=== PATIENT | male | born 2000 | race Hispanic/Latino ===

== ENCOUNTER 2020-01-25 08:45 | Inpatient (IN) | payer OTHER, SELFPAY ==
[2020-01-25 09:25] LABS: #Basophils 0.1 thou/uL (0.0-0.2); #Eosinphils 0.1 thou/uL (0.0-0.7); #Lymphocytes 1.8 thou/uL (1.20-3.40); #Monocytes 0.8 thou/uL (0.11-0.59); #Neutrophils 5.4 thou/uL (1.40-6.50); %Basophils 1.2 % (0.0-1.0); %Eosinophils 1.3 % (0.0-10.0); %Lymphocytes 22.2 % (28.0-48.0); %Monocytes 9.3 % (0.0-4.0); Hemoglobin 13.8 g/dL (14.0-18.0); Mean Corpuscular HGB CONC 33.6 g/dL (32.0-36.0); Mean Corpuscular Hemoglobin 31.2 pg (25.0-35.0); Mean Corpuscular Volume 92.8 fL (78.0-98.0); Mean Platelet Volume 7.7 fL (7.4-10.4); Platelet Count 187 thou/uL (130-400); RBC Distribution Width 11.6 % (11.5-14.5); Red Blood Cell (RBC) Count 4.41 mill/uL (4.00-5.20); White Blood Cell (WBC) Count 8.2 thou/uL (4.8-10.8)
--- NOTE | 2020-01-25 09:45 | RAD ---
CHEST 1 VIEW: Date: 01/25/2020 HISTORY: Chest pain. COMPARISON: None. FINDINGS: The lungs are clear. No pneumothorax. No effusion. Cardiac silhouette and mediastinal contours are wi thin normal limits. No acute osseous abnormality. IMPRESSION: No acute intrathoracic abnormality. POS: [facility]
[2020-01-25 09:47] LABS: ALT (SGPT) 12 U/L (8-55); AST (SGOT) 13 U/L (5-34); Alkaline Phosphatase 84 U/L (50-130); Anion Gap 20 mmol/L (10-20); BUN (Urea Nitrogen) 89 mg/dL (8.9-20.6); Bilirubin, Total 0.7 mg/dL (0.2-1.2); Calc. Creatinine Clearance 0 mL/min (70-130); Carbon Dioxide 18 mmol/L (22-29); Chloride 105 mmol/L (98-107); Estimated GFR-MDRD 4; Globulin 3.1 g/dL (2.4-3.5); Glucose 114 mg/dL (70-105); Lipase 59 U/L (8-78); Potassium 4.2 mmol/L (3.5-5.1); Protein, Total 7.1 g/dL (6.0-8.3); Sodium 139 mmol/L (136-145)
[2020-01-25 10:01] LABS: Amphetamine Not Detected (NotDetected); Barbiturates Screen Not Detected (NotDetected); Benzodiazepine Screen Not Detected (NotDetected); Cocaine Metabolite Screen Detected (NotDetected); Medtox Control Line Valid? VALID (VALID); Medtox Reader # READER 1; Methadone Not Detected (NotDetected); Methamphetamine Not Detected (NotDetected); Opiate Screen Not Detected (NotDetected); Oxycodone Screen Not Detected (NotDetected); Phencyclidine (PCP) Not Detected (NotDetected); THC/Cannabinoid Screen Not Detected (NotDetected); Tricyclic Screen Not Detected (NotDetected)
[2020-01-25 10:08] LABS: CKMB 2.9 ng/mL (0-6.6)
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
[2020-01-25] MEDS ORDERED: hydrALAZINE 20 MG/ML VIAL ONE ×2 (11:18→12:19)
[2020-01-25] MEDS ORDERED: Ondansetron ODT 4 MG TAB PO PRN (14:05)
[2020-01-25] MEDS ORDERED: Acetaminophen 325 MG TAB PO PRN (14:05)
[2020-01-25] MEDS ORDERED: Ondansetron PF 4 MG/2 ML Vial IVP PRN (14:05)
[2020-01-25] MEDS ORDERED: Calcium Carbonate 500 MG ChewTAB PO PRN (14:05)
[2020-01-25 14:14] LABS: Troponin I 0.042 ng/mL (< 0.028)
[2020-01-25] MEDS: Sodium Chloride 0.9% 1,000 ML IV SCH ×2 (14:16→20:50)
[2020-01-25 14:38] LABS: Creatinine, Urine 77.12 mg/dL (63-166)
[2020-01-25 14:39] LABS: CK (CPK) 129 U/L (30-200); Magnesium 1.9 mg/dL (1.7-2.2); Phosphorus 6.8 mg/dL (2.3-4.7)
--- NOTE | 2020-01-25 16:37 | ULT ---
BILATERAL RENAL ULTRASOUND: 01/25/20 HISTORY: Acute renal failure. FINDINGS: The right kidney measures 10.8 cm in length and the left kidney measures 10.1 cm in length. There is a 2.4 cm cyst in the inferior pole of the left kidney. There is marked prominence of the right extrar enal pelvis. No significant hydronephrosis is seen on either side. There are bilateral ureteral jets. The prevoid urinary bladder volume is 121 mL with a postvoid residual of 2 mL. IMPRESSION: 1. No evidence of high grade obstruction. 2. Left renal cyst. POS: [facility]
--- NOTE | 2020-01-25 17:08 | ULT ---
BILATERAL UPPER EXTREMITY VENOUS DOPPLER ULTRASOUND FOR DIALYSIS ACCESS: 01/25/20 HISTORY: Acute renal failure. FINDINGS: RIGHT UPPER EXTREMITY BRACHIAL ARTERY: 5.4 mm RADIAL ARTERY: 3 mm ULNAR ARTERY: 2.5 mm CEPHALIC VEIN Proximal Arm: 4.7 mm Mid Arm: 3.2 mm Distal Arm: 2.9 mm Antecubital Fossa: 3.6 mm Proximal Forearm: 4.4 mm Mid Forearm: 3.7 mm Distal Forearm: 3.6 mm BASILIC VEIN Proximal Arm: 3.3 mm Mid Arm: 3.6 mm Distal Arm: 3.4 mm Antecubital Fossa: 5.6 mm Proximal Forearm: 2.4 mm Mid Forearm: 3.1 mm Distal Forearm: 2.5 mm LEFT UPPER EXTREMITY BRACHIAL ARTERY: 4.5 mm RADIAL ARTERY: 2.4 mm ULNAR ARTERY: 2.7 mm CEPHALIC VEIN Proximal Arm: 4.5 mm Mid Arm: 4 mm Distal Arm: 3.2 mm Antecubital Fossa: 3.5 mm Proximal Forearm: 3.4 mm Mid Forearm: 3.6 mm Distal Forearm: 3.1 mm BASILIC VEIN Proximal Arm: Not visualized Mid Arm: 3.4 mm Distal Arm: 4.3 mm Antecubital Fossa: 4.6 mm Proximal Forearm: 3.1 mm Mid Forearm: 2.2 mm Distal Forearm: 2.8 mm POS: [facility]
[2020-01-25 17:55] LABS: Bilirubin Negative (Negative); Blood, Urine 1+ (Negative); Clarity Clear (Clear); Glucose, Urine (Dipstick) 70 mg/dL (Negative); Leukocyte Negative Leu/uL (Negative); Nitrite Negative (Negative); Protein, Urine (Dipstick) 300 mg/dL (Neg-Trace); Squamous Epithelial None Seen HPF (0-3); Urobilinogen Normal mg/dL (Less than 2)
[2020-01-25 17:57] LABS: Bacteria/HPF 1+ HPF (None Seen)
[2020-01-25] MEDS: chlordiazePOXIDE HCl 25 MG CAP PO SCH (18:15)
[2020-01-25] MEDS: hydrALAZINE 20 MG/ML VIAL SLOW IVP PRN (20:50)
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
[2020-01-26] MEDS: chlordiazePOXIDE HCl 25 MG CAP PO SCH ×5 (00:08→23:57)
[2020-01-26 05:23] LABS: Anion Gap 17 mmol/L (10-20); BUN (Urea Nitrogen) 84 mg/dL (8.9-20.6); Calc. Creatinine Clearance 7 mL/min (70-130); Calcium 8.6 mg/dL (7.8-10.44); Carbon Dioxide 16 mmol/L (22-29); Chloride 113 mmol/L (98-107); Estimated GFR-MDRD 4; Glucose 95 mg/dL (70-105); Sodium 142 mmol/L (136-145)
[2020-01-26 05:29] LABS: #Basophils 0.1 thou/uL (0.0-0.2); #Eosinphils 0.1 thou/uL (0.0-0.7); #Lymphocytes 1.5 thou/uL (1.20-3.40); #Monocytes 0.7 thou/uL (0.11-0.59); #Neutrophils 4.9 thou/uL (1.40-6.50); %Basophils 0.7 % (0.0-1.0); %Lymphocytes 20.3 % (28.0-48.0); %Monocytes 9.8 % (0.0-4.0); %Neutrophils 68.2 % (31.0-61.0); Mean Corpuscular HGB CONC 35.2 g/dL (32.0-36.0); Mean Corpuscular Volume 93.8 fL (78.0-98.0); Mean Platelet Volume 7.3 fL (7.4-10.4); Platelet Count 133 thou/uL (130-400); RBC Distribution Width 11.7 % (11.5-14.5); Red Blood Cell (RBC) Count 3.33 mill/uL (4.00-5.20); White Blood Cell (WBC) Count 7.3 thou/uL (4.8-10.8)
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
[2020-01-26 09:04] LABS: Iron 121 ug/dL (65-175); Iron Binding Capacity, Total 236 mcg/dL (261-462)
[2020-01-26 09:29] LABS: Ferritin 423.27 ng/mL (22-322)
[2020-01-26] MEDS ORDERED: Amlodipine 10 MG TAB PO SCH (09:30)
[2020-01-26] MEDS: Ergocalciferol 1.25 MG(50,000 UNITS) CAP PO SCH (09:40)
[2020-01-26] MEDS: Thiamine 100 MG TAB PO SCH (09:40)
[2020-01-26] MEDS: hydrALAZINE 20 MG/ML VIAL SLOW IVP PRN (11:10)
--- NOTE | 2020-01-26 12:59 | PRG ---
DATE OF SERVICE: 01/26/2020 SUBJECTIVE: Patient was seen and examined at bedside and overnight events noted. Patient denies any shortness of breath or chest pain or palpitation. No history of nausea or vomiting or diarrhea or fever or chills or cramps. OBJECTIVE: General: This is well-built male, in no acute distress. Vital Signs: Temperature 97.7. Heart Rate 120. Respiratory rate 18. Blood pressure 185/111. HEENT: Atraumatic, normocephalic. Oral mucosa is moist. Neck: Supple. Cardiovascular: S1, S2 heard. Rate and rhythm regular. Respiratory: Clear to auscultation. Gastrointestinal: Abdomen is soft. Musculoskeletal: No tenderness. No edema. Dermatologic: No skin rash. Neurologic: Alert and awake and oriented x3. No focal neurologic deficits. Moving all the extremities. Psychiatric: Mood and affect normal. LABORATORY DATA: Potassium 4.0, BUN is 84, creatinine is 14.7. ASSESSMENT AND PLAN: 1. Acute kidney injury on chronic kidney stage 5 with hydration with a history and PTH level seems like this is chronic disease. We will continue to monitor. Plan is to have fistula placement. I will consult Dr. Snyder. We are planning to have a renal replacement in the near future. The patient will also be a good candidate for PD once he shows that he can stop substance abuse. 2. History of substance abuse. 3. History of hypertension. 4. History of renal scarring. 5. Edema, controlled. Control blood pressure and monitor renal function. We will consult Surgery for fistula placement in anticipation of need for renal replacement therapy in the near future. Job ID: [id number]
[2020-01-26] MEDS ORDERED: CEFAZOLIN 2 GM in Premix Bag 1 BAG IVPB SCH (15:15)
[2020-01-26] MEDS: Sodium Bicarbonate Tab 325 MG TAB PO SCH (20:02)
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
[2020-01-27 05:08] LABS: Anion Gap 17 mmol/L (10-20); BUN (Urea Nitrogen) 77 mg/dL (8.9-20.6); Calc. Creatinine Clearance 7 mL/min (70-130); Calcium 8.6 mg/dL (7.8-10.44); Carbon Dioxide 16 mmol/L (22-29); Chloride 111 mmol/L (98-107); Estimated GFR-MDRD 4; Glucose 92 mg/dL (70-105); Potassium 3.9 mmol/L (3.5-5.1); Sodium 140 mmol/L (136-145)
[2020-01-27] MEDS: chlordiazePOXIDE HCl 25 MG CAP PO SCH ×3 (05:18→17:49)
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
[2020-01-27] MEDS: Sodium Bicarbonate Tab 325 MG TAB PO SCH ×2 (08:25→20:05)
[2020-01-27] MEDS: Thiamine 100 MG TAB PO SCH (08:25)
[2020-01-27] MEDS ORDERED: Amlodipine 10 MG TAB PO SCH (09:00)
[2020-01-27] MEDS: hydrALAZINE 20 MG/ML VIAL SLOW IVP PRN (09:43)
[2020-01-27] MEDS ORDERED: Tuberculin PPD 0.1 ML VIAL I-DERMAL SCH (10:00)
[2020-01-27 10:48] LABS: HBSAg Index 0.18 S/CO (0-0.99); HIV (1/2) Antibody/Antigen Non-Reactive (NonReactive); HIV 1/2 INDEX 0.14 S/CO (<1.00); Hep B Surf Ag Non-Reactive S/CO (NonReactive); Hep C IgG Ab Non-Reactive (NonReactive); Hep C Index 0.07 S/CO (0-0.79)
[2020-01-27 10:56] LABS: HBSAB Concentration 38.53 mIU/mL; Hep B Surf AB Reactive (NonReactive)
--- NOTE | 2020-01-27 11:46 | PRG ---
DATE OF SERVICE: 01/27/2020 SUBJECTIVE: Patient was seen and examined at bedside and overnight events noted. Patient denies any shortness of breath or chest pain or palpitation. No history of nausea or vomiting or diarrhea or fever or chills or cramps. OBJECTIVE: GENERAL: This is a well-built male, in no apparent distress. VITAL SIGNS: Temperature 98.2. Pulse 87. Respiratory rate 16. Blood pressure 176/114. HEENT: Atraumatic, normocephalic. Oral mucosa is moist NECK: Supple. CARDIOVASCULAR: S1, S2 heard. Rate and rhythm regular. RESPIRATORY: Clear to auscultation. GASTROINTESTINAL: Abdomen is soft. MUSCULOSKELETAL: No tenderness. No edema. DERMATOLOGIC: No skin rash. NEUROLOGIC: Alert and awake and oriented X3. No focal neurologic deficits. Moving all the extremities. PSYCHIATRIC: Mood and affect normal. LABORATORY DATA: Potassium is 3.9, BUN is 77, creatinine is 14.4. ASSESSMENT AND PLAN: 1. Acute kidney injury on chronic kidney stage 5. No improvement with hydration. Agree with checking immunological labs. 2. We will also place fistula. 3. History of substance abuse, counseled. 4. History of hypertension, most likely due to substance abuse, close monitoring. 5. History of renal scarring. 6. Edema. 7. Vitamin D deficiency secondary to hyperparathyroidism. 8. Significant proteinuria. 9. Check immunological workup and plan is to place fistula. We will continue to monitor. Job ID: [id number]
[2020-01-27] MEDS ORDERED: hydrALAZINE 20 MG/ML VIAL SLOW IVP SCH (13:00)
[2020-01-28] MEDS: chlordiazePOXIDE HCl 25 MG CAP PO SCH ×3 (00:32→13:16)
[2020-01-28 05:18] LABS: Anion Gap 17 mmol/L (10-20); BUN (Urea Nitrogen) 82 mg/dL (8.9-20.6); Calc. Creatinine Clearance 7 mL/min (70-130); Calcium 8.6 mg/dL (7.8-10.44); Carbon Dioxide 18 mmol/L (22-29); Chloride 111 mmol/L (98-107); Estimated GFR-MDRD 4; Glucose 94 mg/dL (70-105); Potassium 4.1 mmol/L (3.5-5.1); Sodium 142 mmol/L (136-145)
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
[2020-01-28] MEDS ORDERED: Protamine Sulfate 50 MG/5 ML VIAL ONE (07:36)
[2020-01-28] MEDS ORDERED: Lidocaine 1% w/Epinephrine 1:100K 20 ML VIAL ONE (07:36)
[2020-01-28] MEDS ORDERED: Heparin 5,000 UNITS/ML VIAL ONE (07:36)
[2020-01-28] MEDS ORDERED: Bupivacaine PF 0.5% 30 ML VIAL ONE (07:36)
[2020-01-28] MEDS ORDERED: Heparin 10,000 UNITS/1 ML VIAL ONE (07:36)
[2020-01-28] MEDS ORDERED: Sodium Chloride 0.9% 30 ML ONE (07:37)
[2020-01-28] MEDS ORDERED: Ioversol 68 % 50 ML VIAL ONE (07:37)
[2020-01-28] MEDS ORDERED: Midazolam HCl 2 mg/2 ml Vial ONE ×2 (08:29→09:07)
[2020-01-28] MEDS ORDERED: Ropivacaine 0.5% HCl/PF (150 MG/30 ML VIAL) ONE ×2 (08:29→13:51)
[2020-01-28] MEDS ORDERED: Dexamethasone 4 mg/ml Vial ONE (08:29)
[2020-01-28] MEDS ORDERED: Fentanyl 100 MCG/2 ML VIAL ONE (08:30)
[2020-01-28] MEDS ORDERED: Amlodipine 10 MG TAB PO SCH (09:00)
[2020-01-28] MEDS ORDERED: NIFEdipine XL 60 MG TAB PO SCH (09:00)
[2020-01-28] MEDS ORDERED: Propofol 1,000 MG/100 ML VIAL IV ONE (09:07)
[2020-01-28] MEDS ORDERED: Fentanyl 250 MCG/5 ML VIAL ONE (09:07)
[2020-01-28] MEDS ORDERED: Ketamine 50 MG/ML (10ML VIAL) ONE (09:35)
[2020-01-28] MEDS ORDERED: Acetaminophen 500 MG TAB PO PRN (10:01)
[2020-01-28] MEDS ORDERED: Ondansetron HCl/PF 4 MG/2 ML Vial IVP PRN (11:15)
--- NOTE | 2020-01-28 11:33 | RAD ---
Chest one view HISTORY: Catheter placement. COMPARISON: 01/25/2020. FINDINGS: Cardiac silhouette is magnified by projection. Pulmonary vasculature is unremarkable. Mediastinum is midline. Large caliber right internal jugular dialysis type catheter is in place with tip overlying the cavoatrial junction. Left subclavian central venous catheter also in place with tip overlying the lower SVC. No evidence of pneumothorax. IMPRESSION : Bilateral central venous catheters in good radiographic position.
[2020-01-28] MEDS ORDERED: hydrALAZINE 20 MG/ML VIAL ONE (12:01)
[2020-01-28] MEDS: Thiamine 100 MG TAB PO SCH (13:15)
[2020-01-28] MEDS: Sodium Bicarbonate Tab 325 MG TAB PO SCH (13:15)
[2020-01-28] MEDS ORDERED: Heparin 10,000 UNITS/ 10 ML VIAL ONE (13:25)
[2020-01-28] MEDS ORDERED: PROPOFOL 200 MG/20 ML VIAL ONE (13:51)
[2020-01-28] MEDS ORDERED: Dexamethasone 20 MG/5 ML VIAL ONE (13:51)
--- NOTE | 2020-01-28 14:08 | OP ---
DATE OF PROCEDURE: 01/28/2020 PREOPERATIVE DIAGNOSES: 1. End-stage renal disease. 2. History of cocaine use. 3. Decision to initiate dialysis. PROCEDURES PERFORMED: 1. Right internal jugular cuffed tunneled hemodialysis catheter, ultrasound and fluoroscopy used for placement. 2. Left Gerardo fistula, cephalic vein calibrated to 3.5 mm coronary dilator. Excellent Doppler signal outflow. ANESTHESIA: Regional, TIVA, and local with 0.5% Marcaine 30 mL mixed with 1% Xylocaine with epinephrine 20 mL. DESCRIPTION OF PROCEDURE: The patient was taken to the operating room where under intravenous sedation and regional anesthesia, neck, chest, left upper extremity, axilla, and chest wall were prepared with ChloraPrep and draped in routine fashion. Local anesthetic was infiltrated in the skin and subcutaneous tissue about the operative site for central line placement. The patient had an IV in his hand, that infiltrated. He had difficult IV access, thus decision was made to place a central line also. Using ultrasound guidance, right and left internal jugular veins were cannulated with trocar catheter, J-wire was threaded, trocar catheter was removed. Skin site was enlarged sharply at the J-wire entry site on both sides. Stab incision was made in the right chest. Seldinger technique used to place a triple-lumen catheter in the left IJ, securing it with 3-0 nylon suture. Each port aspirated blood, flushed with saline solution. Using the tunneling device, the pre-curved [employer] cuffed tunneled hemodialysis catheter tunneled between the 2 incisions over the right chest and neck and capped fabric cuff placed beneath the catheter exit site over the right chest and catheter secured with 2 interrupted sutures of 3-0 nylon. Sterile dressing applied. Smaller and medium sized dilators were placed over the J-wire into the internal jugular vein, removed, dilator and Peel-Away sheath placed over the J-wire into superior vena cava. Dilator and J-wire removed. Catheter placed over the Peel-Away sheath. Peel-Away sheath removed. Platysma was approximated with 4-0 Monocryl, skin with subdermal 4-0 Monocryl and [employer] [place] glue applied. Each port aspirated blood, flushed with saline solution, then heparinized saline solution with 1000 units of heparin per mL, indicating volume of the port. Fluoroscopic images revealed good line placement on each side. An incision was made in the left wrist longitudinally between the cephalic vein and radial artery, carried down to skin and subcutaneous tissue, and both cephalic vein and radial artery dissected free. Branches were divided between clips and 4-0 silk ties. Cephalic vein on the hand side ligated with 3-0 silk tie, divided, spatulated, and interrogated with coronary dilators, passing coronary dilators from 2 mm to 3.5 mm coronary dilator throughout the cephalic vein outflow without obstruction. The patient was given 6000 units of heparin intravenously. After adequate circulation time, the radial artery clamped proximally and distally. A longitudinal arteriotomy made sharply, elongated with Strickland scissors to a 2.5 cm anastomosis. The end cephalic vein spatulated accordingly and end vein to side radial artery anastomosis was created with continuous suture of 6-0 Prolene. After completing the anastomosis, good hemostasis noted and a good Doppler signal noted in the forearm outflow. Inspection was made. No identifiable branches were noted in the cephalic vein at this level. Good hemostasis noted. The patient given protamine 25 mg intravenously by Anesthesia. Subcutaneous tissue was approximated with 3-0 Monocryl, skin with subdermal 4-0 Monocryl, and [employer] glue applied. Job ID: [id number]
[2020-01-28] MEDS ORDERED: Tuberculin PPD 0.1 ML VIAL I-DERMAL SCH ×2 (16:15→16:30)
--- NOTE | 2020-01-28 16:54 | PRG ---
DATE OF SERVICE: 01/28/2020 OBJECTIVE: GENERAL: This is a well-built male, in no apparent distress. VITAL SIGNS: Temperature 98.4, pulse 110, respiratory rate 14, pressure 132/63. LABORATORY DATA: Potassium 4.1, BUN is 82, creatinine is 15.2. ASSESSMENT AND PLAN: 1. End-stage renal disease. Plan is to start on dialysis. The patient had access placement today. He will be able to be a good peritoneal dialysis candidate and need to work on renal transplant too. Immunological workup is pending. Appreciate help from Surgery. 2. History of substance abuse. 3. History of hypertension. 4. History of renal scarring. 5. History of edema. 6. Vitamin D deficiency with secondary hyperparathyroidism. 7. Proteinuria. Immunological workup pending, started on dialysis, tolerating well. Appreciate help from Surgery. We will have Case Management consult, also place PPD, hepatitis panel, HIV negative. We will follow. Job ID: [id number]
[2020-01-28] MEDS: NIFEdipine XL 60 MG TAB PO SCH (17:10)
[2020-01-28] MEDS ORDERED: chlordiazePOXIDE HCl 25 MG CAP PO SCH (20:30)
[2020-01-28] MEDS: traMADol HCl 50 MG TAB PO PRN (23:59)
[2020-01-29 05:30] LABS: Anion Gap 17 mmol/L (10-20); BUN (Urea Nitrogen) 56 mg/dL (8.9-20.6); Calc. Creatinine Clearance 9 mL/min (70-130); Calcium 9.5 mg/dL (7.8-10.44); Carbon Dioxide 22 mmol/L (22-29); Chloride 107 mmol/L (98-107); Estimated GFR-MDRD 6; Glucose 93 mg/dL (70-105); Potassium 3.7 mmol/L (3.5-5.1); Sodium 142 mmol/L (136-145)
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
[2020-01-29] MEDS ORDERED: READ PPD TEST SITE PO SCH (09:00)
[2020-01-29] MEDS: Thiamine 100 MG TAB PO SCH (09:24)
[2020-01-29] MEDS: NIFEdipine XL 60 MG TAB PO SCH (09:24)
--- NOTE | 2020-01-29 09:48 | EKG ---
Test Reason : Blood Pressure : / mmHG Vent. Rate : 088 BPM Atrial Rate : 088 BPM P-R Int : 132 ms QRS Dur : 104 ms QT Int : 386 ms P-R-T Axes : 077 057 061 degrees QTc Int : 467 ms Normal sinus rhythm Biatrial enlargement Incomplete right bundle branch block Abnormal ECG Confirmed by JUANJOSE MARTINEZ DO ([id number]), social media editor MARIAM VARGHESE ([id number] on 01/29/2020 9:48:20 AM Referred By: Confirmed By:JUANJOSE MARTINEZ DO
--- NOTE | 2020-01-29 09:48 | EKG ---
Test Reason : TACHYCARDIA Blood Pressure : / mmHG Vent. Rate : 144 BPM Atrial Rate : 144 BPM P-R Int : 112 ms QRS Dur : 092 ms QT Int : 292 ms P-R-T Axes : 075 081 055 degrees QTc Int : 452 ms Sinus tachycardia Possible Left atrial enlargement Cannot rule out Anterior infarct , age undetermined Abnormal ECG Confirmed by JUANJOSE MARTINEZ DO ([id number]), business editor MARIAM VARGHESE ([id number] on 01/29/2020 9:48:45 AM Referred By: Confirmed By:JUANJOSE MARTINEZ DO
--- NOTE | 2020-01-29 18:24 | PRG ---
DATE OF SERVICE: 01/29/2020 OBJECTIVE: GENERAL: This is a well-built male, in no apparent distress. VITAL SIGNS: Temperature 98.3, pulse 100, respiratory rate 18, and blood pressure 132/80. LABORATORY DATA: Potassium 3.7, BUN is 56, and creatinine is 11.7. ASSESSMENT AND PLAN: 1. End-stage renal disease. Continue dialysis as tolerated. hypertension. 2. . 3. Vitamin D deficiency. 4. Proteinuria. Started on dialysis, tolerating well. Continue dialysis as tolerated. Job ID: [id number]
[2020-01-30 04:56] LABS: Anion Gap 17 mmol/L (10-20); BUN (Urea Nitrogen) 62 mg/dL (8.9-20.6); Calc. Creatinine Clearance 8 mL/min (70-130); Calcium 8.8 mg/dL (7.8-10.44); Carbon Dioxide 20 mmol/L (22-29); Chloride 106 mmol/L (98-107); Estimated GFR-MDRD 5; Glucose 77 mg/dL (70-105); Potassium 3.8 mmol/L (3.5-5.1); Sodium 139 mmol/L (136-145)
[2020-01-30] MEDS: Thiamine 100 MG TAB PO SCH (08:22)
[2020-01-30] MEDS: NIFEdipine XL 60 MG TAB PO SCH (08:23)
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
[2020-01-30] MEDS ORDERED: NIFEdipine XL 30 MG TAB PO SCH (10:15)
--- NOTE | 2020-01-30 15:14 | PRG ---
DATE OF SERVICE: 01/30/2020 SUBJECTIVE: Patient was seen and examined at bedside and overnight events noted. Patient denies any shortness of breath or chest pain or palpitation. No history of nausea or vomiting or diarrhea or fever or chills or cramps. OBJECTIVE: General: This is well-built male, in no . Vital Signs: pulse 104, respiratory rate 18, blood pressure 182/108. HEENT: Atraumatic, normocephalic. Oral mucosa is moist. Neck: Supple. Cardiovascular: S1, S2 heard. Rate and rhythm regular. Respiratory: Clear to auscultation. Gastrointestinal: Abdomen is soft. Musculoskeletal: No tenderness. No edema. Dermatologic: No skin rash. Neurologic: Alert and awake and oriented x3. No focal neurologic deficits. Moving all the extremities. Psychiatric: Mood and affect normal. LABORATORY DATA: Potassium 3.8, BUN is 62, and creatinine is 12.7. ASSESSMENT AND PLAN: 1. End-stage renal disease. Continue on dialysis. 2. Hypertension. 3. Vitamin D deficiency. 4. Proteinuria. 5. Secondary hyperparathyroidism. Tolerating dialysis well. We will continue on dialysis as tolerated. Job ID: [id number]
[2020-01-30] MEDS: hydrALAZINE 20 MG/ML VIAL SLOW IVP PRN (16:47)
[2020-01-30] MEDS ORDERED: Lorazepam 2 MG/ML VIAL SLOW IVP SCH (17:45)
[2020-01-30] MEDS: hydrOXYzine 25 MG TAB PO SCH (20:16)
[2020-01-30] MEDS: traMADol HCl 50 MG TAB PO PRN (20:17)
[2020-01-31] MEDS: hydrOXYzine 25 MG TAB PO SCH ×6 (02:46→21:02)
[2020-01-31 06:03] LABS: Anion Gap 20 mmol/L (10-20); BUN (Urea Nitrogen) 77 mg/dL (8.9-20.6); Calc. Creatinine Clearance 7 mL/min (70-130); Calcium 9.2 mg/dL (7.8-10.44); Carbon Dioxide 19 mmol/L (22-29); Chloride 107 mmol/L (98-107); Estimated GFR-MDRD 5; Glucose 87 mg/dL (70-105); Potassium 3.7 mmol/L (3.5-5.1); Sodium 142 mmol/L (136-145)
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
[2020-01-31] MEDS: Thiamine 100 MG TAB PO SCH (09:34)
[2020-01-31] MEDS: NIFEdipine XL 90 MG TAB PO SCH (09:34)
[2020-01-31 10:52] LABS: ANA Symphony (Qualitative) Negative (Negative); ANA Symphony (Quantitative) 0.1 Ratio (< 0.7 Negative)
--- NOTE | 2020-01-31 11:29 | EKG ---
Test Reason : STAT Blood Pressure : / mmHG Vent. Rate : 128 BPM Atrial Rate : 128 BPM P-R Int : 134 ms QRS Dur : 090 ms QT Int : 328 ms P-R-T Axes : 081 090 040 degrees QTc Int : 478 ms Sinus tachycardia Rightward axis Abnormal ECG Confirmed by MACIE PERAZA ([id number]) on 01/31/2020 11:29:26 AM Referred By: JUAN F Confirmed By:MACIE PERAZA
[2020-01-31 11:50] LABS: EliA Vaculitis New Method **** NEW METHOD ****; Glomerular Basemt Membrane Ab Less than 1.9 EliAU/mL (<7 Negative)
--- NOTE | 2020-01-31 15:12 | PRG ---
DATE OF SERVICE: 01/31/2020 Gurjit Gustafson is doing well today. His left Gerardo fistula has good thrill and bruit. He has good left hand function. He has a triple-lumen in his left IJ and a hemodialysis cuffed tunneled catheter in the right IJ is working well for dialysis. unrestricted without lifting restrictions to exercise his arm and hand to promote maturation of the fistula. He should avoid blood draws above the wrist on the right arm and avoid all blood draws and IV access on the left arm. He should follow up in my office in next 2 to 3 weeks or sooner as indicated. I will see him as needed this hospitalization. Job ID: [id number]
--- NOTE | 2020-01-31 17:04 | PRG ---
DATE OF SERVICE: 01/31/2020 SUBJECTIVE: A 19-year-old male being seen for end-stage renal disease. The patient denies any nausea, vomiting, or chest pain. OBJECTIVE: GENERAL: The patient is awake and alert. VITAL SIGNS: Afebrile, pulse 100, breathing at 16, blood pressure 136/85. HEENT: Head normocephalic and atraumatic. Eyes intact, no ulcers. Nose intact, no ulcers. Ears intact, no ulcers. NECK: Supple. No JVD. CHEST: Symmetrical and clear. CARDIOVASCULAR: Shows S1 and S2, no rub, no murmur. GASTROINTESTINAL: Abdomen is soft, bowel sounds positive. EXTREMITIES: Show no edema or ulcers. SKIN: Shows no rash or petechiae. MUSCULOSKELETAL: Shows no joint swelling or stiffness. GENITOURINARY: Shows no Whitfield or CVA tenderness. NEUROLOGIC: Motor intact. Cranial nerves intact. LABORATORY DATA: Labs show hemoglobin 11, creatinine is 14.0. ASSESSMENT AND PLAN: 1. End-stage renal disease. Plan dialysis. 2. Hypertension, stable. 3. Anemia, stable. 4. Uremia. Plan dialysis. Job ID: [id number]
[2020-02-01] MEDS: hydrOXYzine 25 MG TAB PO SCH ×6 (00:53→21:35)
[2020-02-01 02:08] LABS: Renin Activity 1.022 ng/mL/hr (0.167-5.380)
[2020-02-01 04:48] LABS: Anion Gap 18 mmol/L (10-20); BUN (Urea Nitrogen) 61 mg/dL (8.9-20.6); Calc. Creatinine Clearance 10 mL/min (70-130); Calcium 9.1 mg/dL (7.8-10.44); Carbon Dioxide 23 mmol/L (22-29); Chloride 103 mmol/L (98-107); Estimated GFR-MDRD 6; Glucose 84 mg/dL (70-105); Potassium 3.9 mmol/L (3.5-5.1); Sodium 140 mmol/L (136-145)
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
--- NOTE | 2020-02-01 07:14 | EKG ---
Test Reason : STAT Blood Pressure : / mmHG Vent. Rate : 125 BPM Atrial Rate : 125 BPM P-R Int : 132 ms QRS Dur : 090 ms QT Int : 332 ms P-R-T Axes : 070 080 036 degrees QTc Int : 479 ms Sinus tachycardia Otherwise normal ECG When compared with ECG of 28-JAN-2020 19:48, No significant change was found Confirmed by DR. Loraine FORRESTER ([id number]) on 02/01/2020 7:14:12 AM Referred By: CHARITY Confirmed By:DR. Loraine FORRESTER
[2020-02-01] MEDS: Thiamine 100 MG TAB PO SCH (09:31)
[2020-02-01] MEDS: NIFEdipine XL 90 MG TAB PO SCH (09:32)
--- NOTE | 2020-02-01 13:16 | PRG ---
DATE OF SERVICE: 02/01/2020 SUBJECTIVE: This is a 19-year-old gentleman being seen for end-stage renal disease. The patient denied nausea or chest pain. OBJECTIVE: GENERAL: The patient is awake and alert. VITAL SIGNS: Afebrile, pulse 75, breathing 16, blood pressure 141/84. HEENT: Head normocephalic and atraumatic. Eyes intact, no ulcers. Nose intact, no ulcers. Ears intact, no ulcers. Neck: Supple. No JVD. Chest: Symmetrical and clear. Cardiovascular: Shows S1 and S2, no rub, no murmur. Gastrointestinal: Abdomen is soft, bowel sounds positive. Extremities: Show no edema or ulcers. Skin: Shows no rash or petechiae. Musculoskeletal: Shows no joint swelling or stiffness. Genitourinary: Shows no Whitfield or CVA tenderness. Neurologic: Motor intact. Cranial nerves intact. LABORATORY DATA: Labs reviewed. ASSESSMENT AND PLAN: 1. Stage 6 chronic kidney disease, stable. 2. Hypertension, stable. 3. Anemia, stable. Medication based on GFR appropriate. Job ID: [id number]
[2020-02-01 15:13] LABS: Cytoplasmic (C-ANCA) <1:20 titer (Neg:<1:20); Myeloperoxidase AutoAbs <9.0 U/mL (0.0-9.0); Perinuclear (P-ANCA) <1:20 titer (Neg:<1:20); Proteinase-3 AutoAbs Less than 3.5 U/mL (0.0-3.5)
[2020-02-01] MEDS: hydrALAZINE 20 MG/ML VIAL SLOW IVP PRN (17:13)
[2020-02-01 17:52] LABS: ALT (SGPT) Less than 7 U/L (8-55); AST (SGOT) 12 U/L (5-34); Albumin 3.6 g/dL (3.5-5.0); Alkaline Phosphatase 55 U/L (50-130); Bilirubin, Direct 0.1 mg/dL (0.1-0.3); Bilirubin, Total 0.2 mg/dL (0.2-1.2); Protein, Total 6.5 g/dL (6.0-8.3)
[2020-02-01 18:12] LABS: HBCM Index 0.05 S/CO (0-0.79); Hep B Core Total Ab Non-Reactive (NonReactive); Hep B Core Total Index 0.08 S/CO (0-0.79); Hepatitis B Core IgM Abs Non-Reactive (NonReactive)
[2020-02-02] MEDS: hydrOXYzine 25 MG TAB PO SCH ×3 (02:18→08:48)
[2020-02-02 05:41] LABS: Anion Gap 19 mmol/L (10-20); BUN (Urea Nitrogen) 71 mg/dL (8.9-20.6); Calc. Creatinine Clearance 8 mL/min (70-130); Calcium 9.2 mg/dL (7.8-10.44); Carbon Dioxide 21 mmol/L (22-29); Chloride 103 mmol/L (98-107); Estimated GFR-MDRD 5; Glucose 79 mg/dL (70-105); Potassium 4.3 mmol/L (3.5-5.1); Sodium 139 mmol/L (136-145)
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
[2020-02-02] MEDS: Thiamine 100 MG TAB PO SCH (08:47)
[2020-02-02] MEDS: NIFEdipine XL 60 MG TAB PO SCH (08:48)
[2020-02-02] MEDS: Ergocalciferol 1.25 MG(50,000 UNITS) CAP PO SCH (08:50)
[2020-02-02] MEDS ORDERED: Heparin 10,000 UNITS/ 10 ML VIAL ONE (08:53)
[2020-02-02 09:36] LABS: Metanephrine,Ur 80 ug/L (Undefined); Metanephrines Total-24H 96 ug/24 hr (45-290); Normetanephrine,Ur 207 ug/L (Undefined); Normetanephrines-24H U 248 ug/24 hr (82-500)
--- NOTE | 2020-02-02 20:16 | PRG ---
DATE OF SERVICE: 02/02/2020 SUBJECTIVE: A 19-year-old gentleman being seen for end-stage renal disease. The patient denied nausea, vomiting, or chest pain. OBJECTIVE: GENERAL: The patient is awake and alert. VITAL SIGNS: Afebrile, pulse 77, breathing 16, and blood pressure 151/89. HEENT: Head normocephalic and atraumatic. Eyes intact, no ulcers. Nose intact, no ulcers. Ears intact, no ulcers. NECK: Supple. No JVD. CHEST: Symmetrical and clear. CARDIOVASCULAR: Shows S1 and S2, no rub, no murmur. GASTROINTESTINAL: Abdomen is soft, bowel sounds positive. EXTREMITIES: Show no edema or ulcers. SKIN: Shows no rash or petechiae. MUSCULOSKELETAL: Shows no joint swelling or stiffness. GENITOURINARY: Shows no Whitfield or CVA tenderness. NEUROLOGIC: Motor intact. Cranial nerves intact. LABORATORY DATA: Hemoglobin 11. ASSESSMENT AND PLAN: 1. Stage 6 chronic kidney disease, continue hemodialysis. 2. Hypertension, stable. 3. Anemia, stable. 4. Medication based on GFR appropriate. Job ID: [id number]
[2020-02-02 23:37] LABS: Dopamine 24H Ur 18 ug/24 hr (0-510); Dopamine,Ur 15 ug/L (Undefined); Epinephrine 24H Ur Less than 1 ug/24 hr (0-20); Epinephrine,Ur <1 ug/L (Undefined); Norephinephrine 24H U 8 ug/24 hr (0-135); Norephinephrine,Ur 7 ug/L (Undefined)
[2020-02-03 06:26] LABS: Anion Gap 14 mmol/L (10-20); BUN (Urea Nitrogen) 33 mg/dL (8.9-20.6); Calc. Creatinine Clearance 13 mL/min (70-130); Calcium 9.2 mg/dL (7.8-10.44); Carbon Dioxide 27 mmol/L (22-29); Chloride 99 mmol/L (98-107); Estimated GFR-MDRD 9; Glucose 83 mg/dL (70-105); Sodium 136 mmol/L (136-145)
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
[2020-02-03 08:27] VITALS: TEMP 98.4
[2020-02-03] MEDS: NIFEdipine XL 60 MG TAB PO SCH (08:30)
[2020-02-03] MEDS: Thiamine 100 MG TAB PO SCH (08:30)
[2020-02-03 12:00] VITALS: BP 163/103
--- NOTE | 2020-02-03 12:04 | PRG ---
DATE OF SERVICE: 02/03/2020 SUBJECTIVE: A 19-year-old male, being seen for end-stage renal disease. The patient denied any nausea, vomiting, or chest pain. OBJECTIVE: General: The patient is awake and alert. Vital Signs: Afebrile, pulse 85, breathing at 16, blood pressure 130/80. HEENT: Head normocephalic and atraumatic. Eyes intact, no ulcers. Nose intact, no ulcers. Ears intact, no ulcers. Neck: Supple. No JVD. Chest: Symmetrical and clear. Cardiovascular: Shows S1 and S2, no rub, no murmur. Gastrointestinal: Abdomen is soft, bowel sounds positive. Extremities: Show no edema or ulcers. Skin: Shows no rash or petechiae. Musculoskeletal: Shows no joint swelling or stiffness. Genitourinary: Shows no Whitfield or CVA tenderness. Neurologic: Motor intact. Cranial nerves intact. LABORATORY DATA: Hemoglobin 11. ASSESSMENT AND PLAN: 1. Stage 6 chronic kidney disease, continue hemodialysis. 2. Hypertension, stable. 3. Anemia, stable. 4. Medication based on GFR appropriate. Job ID: [id number]
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
== END 2020-02-03 13:20 | disposition home or self-care (01) | DRG 907 ==
LOC: ERS 08:45 → 2NO 11:07
PROVIDERS: ADMIT Student in an Organized Health Care Education/Training Program; ATTEND Student in an Organized Health Care Education/Training Program
PROC: 031C0ZF Bypass Left Radial Artery to Lower Arm Vein, Open Approach (ICD-10-PCS; principal; 2020-01-25)
PROC: 02HV33Z Insertion of Infusion Device into Superior Vena Cava, Percutaneous Approach (ICD-10-PCS; 2020-01-28)
PROC: 0JH63XZ Insertion of Tunneled Vascular Access Device into Chest Subcutaneous Tissue and Fascia, Percutaneous Approach (ICD-10-PCS; 2020-01-28)
PROC: B518ZZA Fluoroscopy of Superior Vena Cava, Guidance (ICD-10-PCS; 2020-01-28)
PROC: B548ZZA Ultrasonography of Superior Vena Cava, Guidance (ICD-10-PCS; 2020-01-28)
DX: T40.5X1A Poisoning by cocaine, accidental (unintentional), initial encounter (principal); N18.6 End stage renal disease; N17.9 Acute kidney failure, unspecified; I16.1 Hypertensive emergency; I12.0 Hypertensive chronic kidney disease with stage 5 chronic kidney disease or end stage renal disease; N25.81 Secondary hyperparathyroidism of renal origin; F14.10 Cocaine abuse, uncomplicated; F10.10 Alcohol abuse, uncomplicated; F17.200 Nicotine dependence, unspecified, uncomplicated; D63.1 Anemia in chronic kidney disease; F12.10 Cannabis abuse, uncomplicated; E55.9 Vitamin D deficiency, unspecified; M32.14 Glomerular disease in systemic lupus erythematosus; Z71.51 Drug abuse counseling and surveillance of drug abuser; Z90.49 Acquired absence of other specified parts of digestive tract
CPT/HCPCS: 36415; 71045; 76770; 80048; 80053; 80076; 80306; 81003; 81015; 82088; 82306; 82384; 82550; 82553; 82570; 82607; 82728; 82746; 83516; 83520; 83540; 83550; 83690; 83735; 83835; 83970; 84100; 84156; 84244; 84300; 84443; 84484; 85025; 85379; 86038; 86225; 86256; 86580; 86704; 86705; 86706; 86803; 87340; 87389; 90935; 93005; 93010; 93970; 94760; 96361; 96374; 96376; C1752; C1769; G0257; G0365; J0360; J0690; J1100; J1644; J2060; J2250; J2704; J2720; J2795; J3010; Q9967; S0020

== ENCOUNTER 2020-03-28 07:25 | Outpatient (CLI) | payer MEDICARE, OTHER ==
[2020-03-28 18:10] LABS: #Basophils 0.1 thou/uL (0.0-0.2); #Eosinphils 0.1 thou/uL (0.0-0.7); #Lymphocytes 1.7 thou/uL (1.20-3.40); #Monocytes 0.4 thou/uL (0.11-0.59); #Neutrophils 2.8 thou/uL (1.40-6.50); %Basophils 1.4 % (0.0-1.0); %Eosinophils 1.8 % (0.0-10.0); %Lymphocytes 33.7 % (28.0-48.0); %Monocytes 8.1 % (0.0-4.0); Hemoglobin 9.8 g/dL (14.0-18.0); Mean Corpuscular HGB CONC 34.2 g/dL (32.0-36.0); Mean Corpuscular Volume 93.7 fL (78.0-98.0); Mean Platelet Volume 7.3 fL (7.4-10.4); Platelet Count 343 thou/uL (130-400); RBC Distribution Width 12.1 % (11.5-14.5); Red Blood Cell (RBC) Count 3.04 mill/uL (4.00-5.20)
[2020-03-28 18:40] LABS: Anion Gap 15 mmol/L (10-20); BUN (Urea Nitrogen) 28 mg/dL (8.9-20.6); Calc. Creatinine Clearance 0 mL/min (70-130); Calcium 9.9 mg/dL (7.8-10.44); Carbon Dioxide 32 mmol/L (22-29); Chloride 100 mmol/L (98-107); Estimated GFR-MDRD 10; Glucose 79 mg/dL (70-105); Sodium 143 mmol/L (136-145)
[2020-03-29 12:55] LABS: SARS-CoV-2 MS2 Positive; SARS-CoV-2 N Gene Positive; SARS-CoV-2 S Gene Positive; SARS-CoV-2 orf1ab Positive
== END 2020-03-28 07:26 | disposition home or self-care (01) ==
LOC: LABBT 07:25
PROVIDERS: ATTEND Specialist
DX: Z01.812 Encounter for preprocedural laboratory examination (principal); Z11.59 Encounter for screening for other viral diseases; N18.6 End stage renal disease
CPT/HCPCS: 80048; 85025; U0003; 87635

== ENCOUNTER 2020-03-29 16:35 | Emergency (ER) | payer OTHER, SELFPAY ==
[2020-03-29] MEDS ORDERED: Acetaminophen 500 MG TAB ONE (17:29)
[2020-03-29 18:01] LABS: #Basophils 0.1 thou/uL (0.0-0.2); #Eosinphils 0.1 thou/uL (0.0-0.7); #Lymphocytes 1.4 thou/uL (1.20-3.40); #Monocytes 0.7 thou/uL (0.11-0.59); %Basophils 0.9 % (0.0-1.0); %Eosinophils 0.6 % (0.0-10.0); %Lymphocytes 15.1 % (28.0-48.0); %Monocytes 7.4 % (0.0-4.0); %Neutrophils 76.1 % (31.0-61.0); Hemoglobin 10.1 g/dL (14.0-18.0); Mean Corpuscular HGB CONC 35.3 g/dL (32.0-36.0); Mean Corpuscular Hemoglobin 33.2 pg (25.0-35.0); Mean Corpuscular Volume 94.1 fL (78.0-98.0); Mean Platelet Volume 7.1 fL (7.4-10.4); Platelet Count 285 thou/uL (130-400); Red Blood Cell (RBC) Count 3.04 mill/uL (4.00-5.20); White Blood Cell (WBC) Count 9.2 thou/uL (4.8-10.8)
[2020-03-29 18:32] LABS: ALT (SGPT) Less than 7 U/L (8-55); AST (SGOT) 9 U/L (5-34); Albumin 4.5 g/dL (3.5-5.0); Alkaline Phosphatase 93 U/L (50-130); Anion Gap 18 mmol/L (10-20); BUN (Urea Nitrogen) 51 mg/dL (8.9-20.6); Bilirubin, Total 0.4 mg/dL (0.2-1.2); Calc. Creatinine Clearance 0 mL/min (70-130); Calcium 9.7 mg/dL (7.8-10.44); Carbon Dioxide 28 mmol/L (22-29); Chloride 103 mmol/L (98-107); Estimated GFR-MDRD 6; Glucose 91 mg/dL (70-105); Potassium 5.1 mmol/L (3.5-5.1); Protein, Total 7.5 g/dL (6.0-8.3); Sodium 144 mmol/L (136-145)
--- NOTE | 2020-03-29 19:30 | CT ---
CT ANGIOGRAM THORAX WITH IV CONTRAST AND 3-D RECONSTRUCTIONS CLINICAL INDICATION: Heart palpitations. Reported positive test for COVID one day ago COMPARISON: None FINDINGS: Pulmonary arteries: No filling defects are seen in the central or segmental pulmonary arteries to sug gest pulmonary embolus. There is suboptimal opacification of the subsegmental pulmonary arteries. Aorta: The aorta is normal in caliber without evidence of an aortic dissection. Lungs: There are patchy groundglass densities seen in the left lower lobe. Right lung is clear. No pl eural effusion is identified. Mediastinum: The heart is mildly enlarged. There is mild increased number of prevascular space lymph nodes as well as a mildly enlarged AP window lymph node measuring 1.3 cm in short axis dimension suggesting lymphadenopathy which may be reactive in origin. Thyroid gland: Normal in appearance where visualized Osseous structures: No suspicious lytic or sclerotic osseous lesions are identified. Chest wall: No abnormality visualized. Upper abdomen: Embolization coils are seen involving the lower pole left kidney with volume loss and scarring involving the lower pole left kidney. Extrarenal pelvis is present on the right with mild caliectasis involving the limited visualized superior pole of each kidney. The gallbladder is not distended, but there is trace amount of pericholecystic fluid identified. IMPRESSION: 1. Patchy groundglass densities left lower lobe which may be related to pneumonia. Viral pneumonitis is also a differential consideration. 2. Mediastinal lymphadenopathy which may be reactive in origin. 3. No CT evidence of a pulmonary embolus involving the central or segmental pulmonary arteries. 4. Small amount of pericholecystic fluid. Gallbladder is not distended and greco of the gallbladder d o not appear thickened. Exact etiology for pericholecystic fluid is uncertain. Cholecystitis in the correct clinical scenario cannot be excluded. 5. Volume loss involving the inferior pole left kidney which is incompletely imaged with embolization coils overlying the inferior pole left kidney. 6. Mild cardiomegaly.
== END 2020-03-29 20:16 | disposition home or self-care (01) ==
LOC: ERS 16:35
DX: U07.1 COVID-19 (principal); R00.2 Palpitations; F32.9 Major depressive disorder, single episode, unspecified; Z87.891 Personal history of nicotine dependence
CPT/HCPCS: 71045; 71275; 80053; 85025; 93005

== ENCOUNTER 2020-04-28 06:27 | Outpatient (CLI) | payer MEDICARE, OTHER ==
[2020-04-28 14:08] LABS: #Basophils 0.1 thou/uL (0.0-0.2); #Eosinphils 0.3 thou/uL (0.0-0.7); #Lymphocytes 2.5 thou/uL (1.20-3.40); #Monocytes 0.5 thou/uL (0.11-0.59); #Neutrophils 2.9 thou/uL (1.40-6.50); %Basophils 1.4 % (0.0-1.0); %Eosinophils 4.1 % (0.0-10.0); %Lymphocytes 40.5 % (28.0-48.0); %Monocytes 8.4 % (0.0-4.0); %Neutrophils 45.7 % (31.0-61.0); Hemoglobin 10.8 g/dL (14.0-18.0); Mean Corpuscular HGB CONC 34.3 g/dL (32.0-36.0); Mean Corpuscular Hemoglobin 33.5 pg (25.0-35.0); Mean Corpuscular Volume 97.5 fL (78.0-98.0); Mean Platelet Volume 7.7 fL (7.4-10.4); Platelet Count 225 thou/uL (130-400); RBC Distribution Width 13.1 % (11.5-14.5); Red Blood Cell (RBC) Count 3.23 mill/uL (4.00-5.20); White Blood Cell (WBC) Count 6.3 thou/uL (4.8-10.8)
[2020-04-28 15:32] LABS: Anion Gap 23 mmol/L (10-20); BUN (Urea Nitrogen) 115 mg/dL (8.9-20.6); Calc. Creatinine Clearance 0 mL/min (70-130); Calcium 8.8 mg/dL (7.8-10.44); Carbon Dioxide 21 mmol/L (22-29); Chloride 101 mmol/L (98-107); Estimated GFR-MDRD 4; Glucose 78 mg/dL (70-105); Potassium 4.7 mmol/L (3.5-5.1); Sodium 140 mmol/L (136-145)
== END 2020-04-28 06:28 | disposition home or self-care (01) ==
LOC: LABBT 06:27
PROVIDERS: ATTEND Specialist
DX: Z01.812 Encounter for preprocedural laboratory examination (principal); N18.6 End stage renal disease
CPT/HCPCS: 80048; 85025

== ENCOUNTER 2020-05-03 12:12 | Day surgery (SDC) | payer MEDICARE ==
[2020-04-27 14:37] VITALS: BMI 19.2
[~2020-05-03 12:12] MED LIST: Lidocaine 1% PF 5 ML VIAL ONE; Ondansetron PF 4 MG/2 ML Vial ONE; PROPOFOL 200 MG/20 ML VIAL ONE; Rocuronium Bromide 10 MG/ML (10ML VIAL) ONE; Succinylcholine Chloride 20 MG/ML 10 ml SYRINGE FS ONE
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
[2020-05-03] MEDS ORDERED: Lidocaine 1% w/Epinephrine 1:100K 20 ML VIAL ONE (13:43)
[2020-05-03] MEDS ORDERED: Heparin 10,000 UNITS/1 ML VIAL ONE (13:43)
[2020-05-03] MEDS ORDERED: Fentanyl 100 MCG/2 ML VIAL ONE ×2 (13:43→15:14)
[2020-05-03] MEDS ORDERED: Bupivacaine 0.25% HCL 30 ML VIAL ONE (13:43)
[2020-05-03] MEDS ORDERED: Bupivacaine PF 0.5% 30 ML VIAL ONE (13:43)
[2020-05-03] MEDS ORDERED: Sodium Chloride 0.9% 10 ML ONE (15:14)
[2020-05-03] MEDS ORDERED: hydrALAZINE 20 MG/ML VIAL ONE (15:20)
[2020-05-03] MEDS ORDERED: traMADol HCl 50 MG TAB ONE (15:55)
--- NOTE | 2020-05-03 16:53 | OP ---
DATE OF PROCEDURE: 05/03/2020 PREOPERATIVE DIAGNOSES: 1. End-stage renal disease. 2. Functioning left forearm fistula. 3. Desires peritoneal dialysis. POSTOPERATIVE DIAGNOSES: 1. End-stage renal disease. 2. Functioning left forearm fistula. 3. Desires peritoneal dialysis. PROCEDURE PERFORMED: Laparoscopic peritoneal dialysis catheter, double-cuffed pigtail. Omentopexy not necessary due to previous appendectomy adhesions of very small omentum to upper abdomen. ANESTHESIA: General, local with 0.5% Marcaine 30 mL, mixed with 1% Xylocaine with epinephrine 20 mL. DESCRIPTION OF PROCEDURE: The patient was taken to the operating room where under general anesthesia, abdomen was prepared with ChloraPrep and draped in routine fashion. Local anesthetic mixture was infiltrated into the skin and subcutaneous tissue about the operative site. Left lateral subcostal incision made and pneumoperitoneum to 15 mmHg was obtained with a Veress needle, replacing with a 5 port, video laparoscope inserted. Right lateral subcostal incision was made and a 5 port placed. Incision was made in the left lower quadrant planned exit site, and superomedial to this at the umbilical level, a counter incision was made and 8-mm port placed, directed caudally in the subcutaneous tissue, rectus sheath visualized laparoscopically, penetrating the pelvis dependently. The double-cuffed pigtail catheter inserted, placing the internal cuff in the rectus sheath and 8-mm port removed. The [place] dissector placed through the planned exit site, directed to the counter incision, grasping the catheter and pulling it back down out of the exit site, placed an external cuff in the subcutaneous tissue. Subcutaneous tissue was approximated with 4-0 Monocryl, skin with subdermal 4-0 Monocryl, and [place] glue applied. The port cap and flushing device secured and it was flushed with heparinized saline solution with 1000 units of heparin per mL, indicating 10 mL. Sterile dressing applied. Irrigant and pneumoperitoneum evacuated. All instruments were removed. All skin incisions were approximated with interrupted subdermal 4-0 Monocryl and [place] glue applied. Job ID: [id number]
== END 2020-05-03 16:48 | disposition home or self-care (01) ==
LOC: SDC 12:12
PROVIDERS: ATTEND Specialist
PROC: 0WHG43Z Insertion of Infusion Device into Peritoneal Cavity, Percutaneous Endoscopic Approach (ICD-10-PCS; principal; 2020-05-03)
DX: N18.6 End stage renal disease (principal); Z20.828 Contact with and (suspected) exposure to other viral communicable diseases
CPT/HCPCS: J0360; J0690; J1644; J2405; J2704; J3010; S0020

== ENCOUNTER 2020-05-16 15:51 | Emergency (ER) | payer MEDICARE ==
--- NOTE | 2020-05-16 16:23 | RAD ---
EXAM: Chest 2 views: HISTORY: Chest pain for one month. Covid positive COMPARISON: None. FINDINGS: There is a normal-sized cardiomediastinal silhouette. There is no evidence of consolidation, mass, or pleural effusion. The bones are unremarkable. A coil is seen in the left upper quadrant of the abdomen. IMPRESSION: No evidence of acute cardiopulmonary disease
== END 2020-05-16 18:00 | disposition home or self-care (01) ==
LOC: ERS 15:51
DX: N63.10 Unspecified lump in the right breast, unspecified quadrant (principal); F32.9 Major depressive disorder, single episode, unspecified; I12.9 Hypertensive chronic kidney disease with stage 1 through stage 4 chronic kidney disease, or unspecified chronic kidney disease; N18.9 Chronic kidney disease, unspecified; Z99.2 Dependence on renal dialysis; Z87.891 Personal history of nicotine dependence
CPT/HCPCS: 71046

== ENCOUNTER 2020-11-27 05:40 | Day surgery (SDC) | payer MEDICARE, MEDICAID ==
[2020-11-24 09:18] VITALS: BMI 20.5
--- NOTE | 2020-11-27 12:13 | OP ---
DATE OF PROCEDURE: 11/27/2020 PREOPERATIVE DIAGNOSIS: End-stage renal disease, mechanically-functioning peritoneal dialysis catheter, although undesired peritoneal dialysis, wants to return to hemodialysis. POSTOPERATIVE DIAGNOSIS: End-stage renal disease, mechanically-functioning peritoneal dialysis catheter, although undesired peritoneal dialysis, wants to return to hemodialysis. PROCEDURE PERFORMED: Removal of peritoneal dialysis catheter. ANESTHESIA: TIVA, local of 0.5% Marcaine 30 mL mixed with 1% Xylocaine with epinephrine 20 mL. DESCRIPTION OF PROCEDURE: The patient was taken to the operating room, where under intravenous sedation, abdomen and catheter were prepared with ChloraPrep and draped in routine fashion. Catheter and cuffs dissected free, removed intact. Wound packed open. Sterile dressing applied. The patient tolerated the procedure well. Job ID: [id number]
[2020-11-27] MEDS ORDERED: PROPOFOL 200 MG/20 ML VIAL ONE (14:37)
== END 2020-11-27 09:12 | disposition home or self-care (01) ==
LOC: SDC 05:40
PROVIDERS: ATTEND Specialist
PROC: 0WPG03Z Removal of Infusion Device from Peritoneal Cavity, Open Approach (ICD-10-PCS; principal; 2020-11-27)
DX: Z49.02 Encounter for fitting and adjustment of peritoneal dialysis catheter (principal); N18.6 End stage renal disease; N62 Hypertrophy of breast; Z79.899 Other long term (current) drug therapy
CPT/HCPCS: J2704

== ENCOUNTER 2021-05-08 19:41 | Inpatient (IN) | payer MEDICARE, MEDICAID ==
[~2021-05-08 19:41] MED LIST changes: +Iopamidol-370 76% 500 ML 1 ML ONE; -Lidocaine 1% PF 5 ML VIAL ONE; -Ondansetron PF 4 MG/2 ML Vial ONE; -PROPOFOL 200 MG/20 ML VIAL ONE; -Rocuronium Bromide 10 MG/ML (10ML VIAL) ONE; -Succinylcholine Chloride 20 MG/ML 10 ml SYRINGE FS ONE
[2021-05-08 20:14] LABS: Hemoglobin 11.8 g/dL (14.0-18.0); Mean Corpuscular HGB CONC 33.6 g/dL (32.0-36.0); Mean Corpuscular Hemoglobin 32.5 pg (27.0-31.0); Mean Corpuscular Volume 96.6 fL (78.0-98.0); Mean Platelet Volume 7.7 fL (7.4-10.4); Platelet Count 194 thou/uL (130-400); RBC Distribution Width 14.5 % (11.5-14.5); Red Blood Cell (RBC) Count 3.64 mill/uL (4.70-6.10); White Blood Cell (WBC) Count 7.5 thou/uL (4.8-10.8)
[2021-05-08 20:29] LABS: ALT (SGPT) 10 U/L (8-55); AST (SGOT) 10 U/L (5-34); Albumin 4.7 g/dL (3.5-5.0); Alkaline Phosphatase 79 U/L (40-110); Anion Gap 27 mmol/L (10-20); BUN (Urea Nitrogen) 101 mg/dL (8.9-20.6); Bilirubin, Total 0.7 mg/dL (0.2-1.2); Calc. Creatinine Clearance 0 mL/min (70-130); Calcium 9.9 mg/dL (7.8-10.44); Carbon Dioxide 25 mmol/L (22-29); Chloride 92 mmol/L (98-107); Globulin 3.2 g/dL (2.4-3.5); Glucose 96 mg/dL (70-105); Potassium 5.3 mmol/L (3.5-5.1); Protein, Total 7.9 g/dL (6.0-8.3); Sodium 139 mmol/L (136-145)
[2021-05-08 20:32] LABS: Band 18 % (5-11); Lymphocytes 7 % (21-51); MDiff Complete? YES; Monocytes 9 % (0-10); Neutrophil 66 % (42-75); Platelet Morphology Comment Appears Adequate; Polychromasia SLIGHT = 2-3 cells (100X) (0-2/hpf)
[2021-05-08] MEDS ORDERED: Piperacillin/Tazobactam 3.375 GM VIAL ONE (20:41)
[2021-05-08] MEDS ORDERED: Morphine 4 MG/ML VIAL ONE (20:41)
[2021-05-08] MEDS ORDERED: Ondansetron PF 4 MG/2 ML Vial ONE ×2 (20:41→22:02)
[2021-05-08] MEDS ORDERED: Acetaminophen 500 MG TAB ONE (20:41)
[2021-05-08] MEDS ORDERED: Bupivacaine 0.25% HCL 30 ML VIAL ONE (21:29)
[2021-05-08] MEDS ORDERED: Lidocaine 1% w/Epinephrine 1:100K 20 ML VIAL ONE (21:29)
[2021-05-08] MEDS ORDERED: Fentanyl 100 MCG/2 ML VIAL ONE ×2 (21:36→21:49)
[2021-05-08] MEDS ORDERED: Midazolam HCl 2 mg/2 ml Vial ONE (21:36)
[2021-05-08] MEDS ORDERED: Glycopyrrolate 0.2 MG/ML 5 ML SYRINGE ONE (22:02)
[2021-05-08] MEDS ORDERED: PROPOFOL 200 MG/20 ML VIAL ONE (22:02)
[2021-05-08] MEDS ORDERED: Dexamethasone 20 MG/5 ML VIAL ONE (22:02)
[2021-05-08] MEDS ORDERED: PHENYLEPHRINE-NS 100 MCG/ML 10 ML SYRINGE ONE (22:02)
[2021-05-08] MEDS ORDERED: Rocuronium Bromide 10 MG/ML (10ML VIAL) ONE (22:02)
[2021-05-08] MEDS ORDERED: Calcium Chloride 1 GM/10 ML Abboject SYRINGE ONE (22:02)
[2021-05-09] MEDS ORDERED: Promethazine HCl 25 MG/ML VIAL IVPB PRN (00:08)
[2021-05-09] MEDS ORDERED: Ondansetron HCl/PF 4 MG/2 ML Vial IVP PRN (00:08)
[2021-05-09] MEDS ORDERED: Promethazine HCl 25 MG/ML VIAL IM PRN ×2 (00:08→01:25)
[2021-05-09] MEDS ORDERED: hydrALAZINE 20 MG/ML VIAL ONE (00:39)
[2021-05-09] MEDS ORDERED: Ondansetron PF 4 MG/2 ML Vial IVP PRN (01:25)
[2021-05-09] MEDS: cefOXitin Sodium/Dextrose,Iso 1 GM in Premix Bag 1 BAG IVPB SCH ×2 (02:29→11:11)
[2021-05-09] MEDS: Sodium Chloride 0.9% 1,000 ML IV SCH ×3 (02:30→23:33)
[2021-05-09 03:08] VITALS: BMI 19.5
[2021-05-09] MEDS: Famotidine/PF 20 mg/2ml Vial SLOW IVP SCH (09:11)
[2021-05-09] MEDS: Famotidine 20 MG TAB PO SCH (09:19)
[2021-05-09 10:42] LABS: #Lymphocytes 0.5 thou/uL (1.20-3.40); #Monocytes 0.4 thou/uL (0.11-0.59); #Neutrophils 4.1 thou/uL (1.40-6.50); %Basophils 0.4 % (0.0-1.0); %Lymphocytes 9.6 % (21.0-51.0); %Monocytes 8.8 % (0.0-10.0); %Neutrophils 81.1 % (42.0-75.0); Hemoglobin 11.6 g/dL (14.0-18.0); Mean Corpuscular HGB CONC 33.6 g/dL (32.0-36.0); Mean Corpuscular Hemoglobin 32.8 pg (27.0-31.0); Mean Corpuscular Volume 97.7 fL (78.0-98.0); Mean Platelet Volume 7.9 fL (7.4-10.4); Platelet Count 178 thou/uL (130-400); RBC Distribution Width 14.4 % (11.5-14.5); Red Blood Cell (RBC) Count 3.54 mill/uL (4.70-6.10)
[2021-05-09 10:59] LABS: Anion Gap 26 mmol/L (10-20); BUN (Urea Nitrogen) 107 mg/dL (8.9-20.6); Calc. Creatinine Clearance 5 mL/min (70-130); Carbon Dioxide 20 mmol/L (22-29); Chloride 96 mmol/L (98-107); Glucose 125 mg/dL (70-105); Potassium 5.7 mmol/L (3.5-5.1); Sodium 136 mmol/L (136-145)
[2021-05-09] MEDS: hydrALAZINE 20 MG/ML VIAL SLOW IVP PRN ×3 (11:08→20:01)
[2021-05-09] MEDS: Morphine 2 MG/ML VIAL SLOW IVP PRN ×2 (12:30→16:48)
[2021-05-09 13:36] LABS: SARS-CoV-2 NAA Rapid Test Not Detected (NotDetected)
[2021-05-09] MEDS ORDERED: hydrALAZINE 25 MG TAB PO SCH (16:30)
[2021-05-09] MEDS ORDERED: Carvedilol 25 MG TAB PO SCH (16:30)
[2021-05-09] MEDS ORDERED: NIFEdipine XL 60 MG TAB PO SCH (16:30)
[2021-05-09] MEDS: Morphine 4 MG/ML VIAL SLOW IVP PRN (20:01)
[2021-05-09] MEDS ORDERED: Labetalol HCl 100 MG/20 ML VIAL SLOW IVP SCH (21:45)
[2021-05-09] MEDS: niCARdipine 25 MG in Sodium Chloride 0.9% 250 ML 240 ML IVPB SCH (23:32)
[2021-05-10] MEDS ORDERED: Lorazepam 2 MG/ML VIAL ONE (00:41)
[2021-05-10] MEDS: niCARdipine 25 MG in Sodium Chloride 0.9% 250 ML 240 ML IVPB SCH ×5 (04:19→22:57)
[2021-05-10 04:20] LABS: Anion Gap 18 mmol/L (10-20); BUN (Urea Nitrogen) 44 mg/dL (8.9-20.6); Calc. Creatinine Clearance 9 mL/min (70-130); Calcium 9.2 mg/dL (7.8-10.44); Carbon Dioxide 29 mmol/L (22-29); Chloride 99 mmol/L (98-107); Glucose 104 mg/dL (70-105); Potassium 4.6 mmol/L (3.5-5.1); Sodium 141 mmol/L (136-145)
[2021-05-10 04:26] LABS: Hemoglobin 9.7 g/dL (14.0-18.0); Mean Corpuscular HGB CONC 33.9 g/dL (32.0-36.0); Mean Corpuscular Hemoglobin 33.2 pg (27.0-31.0); Mean Corpuscular Volume 98.1 fL (78.0-98.0); Platelet Count 162 thou/uL (130-400); RBC Distribution Width 14.4 % (11.5-14.5); Red Blood Cell (RBC) Count 2.93 mill/uL (4.70-6.10)
[2021-05-10] MEDS ORDERED: Lorazepam 2 MG/ML VIAL SLOW IVP SCH (04:30)
[2021-05-10 05:11] LABS: Band 10 % (5-11); Lymphocytes 18 % (21-51); MDiff Complete? YES; Macrocytosis SLIGHT = 6-15 cells (100X) (0-5/hpf); Monocytes 24 % (0-10); Neutrophil 46 % (42-75); Platelet Morphology Comment Appears Adequate; Reactive Lymphocytes 2 % (0-10)
[2021-05-10] MEDS ORDERED: cloNIDine 0.1mg/24 Hour PATCH TD SCH (09:00)
[2021-05-10] MEDS ORDERED: hydrALAZINE 25 MG TAB PO SCH (09:00)
[2021-05-10] MEDS: Famotidine/PF 20 mg/2ml Vial SLOW IVP SCH (09:12)
[2021-05-10] MEDS: Famotidine 20 MG TAB PO SCH (09:15)
[2021-05-10] MEDS: Carvedilol 25 MG TAB PO SCH ×2 (10:31→20:41)
[2021-05-10] MEDS: Dextrose 5 %-0.45 % NaCl 1,000 ML IV SCH ×2 (10:31→19:28)
[2021-05-10] MEDS: hydrALAZINE 25 MG TAB PO SCH ×3 (10:31→20:41)
[2021-05-10] MEDS: NIFEdipine XL 60 MG TAB PO SCH ×2 (10:32→20:41)
[2021-05-10] MEDS: Morphine 4 MG/ML VIAL SLOW IVP PRN ×2 (14:25→23:03)
[2021-05-10] MEDS ORDERED: Carvedilol 25 MG TAB PO SCH (16:15)
[2021-05-10] MEDS ORDERED: NIFEdipine XL 60 MG TAB PO SCH (16:15)
[2021-05-10] MEDS: ceFAZolin 1 GM/D5W 1 GM in Premix Bag 1 BAG IVPB SCH (22:21)
[2021-05-11] MEDS: Morphine 2 MG/ML VIAL SLOW IVP PRN ×2 (05:30→16:48)
[2021-05-11] MEDS: niCARdipine 25 MG in Sodium Chloride 0.9% 250 ML 240 ML IVPB SCH (05:35)
[2021-05-11] MEDS: Dextrose 5 %-0.45 % NaCl 1,000 ML IV SCH ×2 (06:27→17:56)
[2021-05-11] MEDS: ceFAZolin 1 GM/D5W 1 GM in Premix Bag 1 BAG IVPB SCH (06:36)
[2021-05-11] MEDS: NIFEdipine XL 60 MG TAB PO SCH ×2 (07:56→20:45)
[2021-05-11] MEDS: Famotidine 20 MG TAB PO SCH (07:57)
[2021-05-11] MEDS: Carvedilol 25 MG TAB PO SCH ×2 (07:57→20:45)
[2021-05-11] MEDS: hydrALAZINE 25 MG TAB PO SCH ×3 (07:57→20:45)
[2021-05-11] MEDS ORDERED: ceFAZolin 1 GM/D5W 1 GM in Premix Bag 1 BAG IVPB SCH (14:00)
[2021-05-11] MEDS: Sodium Chloride 0.9% 1,000 ML IV SCH (17:55)
[2021-05-12] MEDS: Dextrose 5 %-0.45 % NaCl 1,000 ML IV SCH (01:14)
[2021-05-12] MEDS: Sodium Chloride 0.9% 1,000 ML IV SCH (01:14)
[2021-05-12 05:57] LABS: #Eosinphils 0.2 thou/uL (0.0-0.7); #Monocytes 0.9 thou/uL (0.11-0.59); #Neutrophils 5.3 thou/uL (1.40-6.50); %Basophils 0.2 % (0.0-1.0); %Eosinophils 2.5 % (0.0-10.0); %Lymphocytes 13.2 % (21.0-51.0); %Monocytes 11.7 % (0.0-10.0); %Neutrophils 72.4 % (42.0-75.0); Hemoglobin 8.8 g/dL (14.0-18.0); Mean Corpuscular HGB CONC 33.2 g/dL (32.0-36.0); Mean Corpuscular Hemoglobin 32.5 pg (27.0-31.0); Mean Platelet Volume 7.6 fL (7.4-10.4); Platelet Count 162 thou/uL (130-400); RBC Distribution Width 14.1 % (11.5-14.5); Red Blood Cell (RBC) Count 2.72 mill/uL (4.70-6.10); White Blood Cell (WBC) Count 7.3 thou/uL (4.8-10.8)
[2021-05-12 06:19] LABS: ALT (SGPT) Less than 7 U/L (8-55); AST (SGOT) 12 U/L (5-34); Albumin 3.1 g/dL (3.5-5.0); Alkaline Phosphatase 48 U/L (40-110); Anion Gap 14 mmol/L (10-20); BUN (Urea Nitrogen) 28 mg/dL (8.9-20.6); Bilirubin, Total 0.3 mg/dL (0.2-1.2); Calc. Creatinine Clearance 13 mL/min (70-130); Calcium 8.8 mg/dL (7.8-10.44); Carbon Dioxide 28 mmol/L (22-29); Chloride 98 mmol/L (98-107); Globulin 2.4 g/dL (2.4-3.5); Glucose 86 mg/dL (70-105); Potassium 3.8 mmol/L (3.5-5.1); Protein, Total 5.5 g/dL (6.0-8.3); Sodium 136 mmol/L (136-145)
[2021-05-12] MEDS: Famotidine 20 MG TAB PO SCH (08:59)
[2021-05-12] MEDS: Carvedilol 25 MG TAB PO SCH (08:59)
[2021-05-12] MEDS: hydrALAZINE 25 MG TAB PO SCH (08:59)
[2021-05-12] MEDS: NIFEdipine XL 60 MG TAB PO SCH (08:59)
[2021-05-12 12:04] VITALS: BP 155/93; TEMP 97.4
== END 2021-05-12 13:15 | disposition home or self-care (01) | DRG 350 ==
LOC: ERS 19:41 → SURG B 05-09 00:29 → CCU 05-09 23:02 → SURG A 05-11 13:09
PROVIDERS: ADMIT Specialist; ATTEND Specialist
PROC: 0YU50JZ Supplement Right Inguinal Region with Synthetic Substitute, Open Approach (ICD-10-PCS; principal; 2021-05-08)
PROC: 0VB90ZZ Excision of Right Testis, Open Approach (ICD-10-PCS; 2021-05-08)
PROC: 0VBF0ZZ Excision of Right Spermatic Cord, Open Approach (ICD-10-PCS; 2021-05-08)
PROC: 5A1D70Z Performance of Urinary Filtration, Intermittent, Less than 6 Hours Per Day (ICD-10-PCS; 2021-05-09)
PROC: 0D9670Z Drainage of Stomach with Drainage Device, Via Natural or Artificial Opening (ICD-10-PCS; 2021-05-09)
DX: K40.30 Unilateral inguinal hernia, with obstruction, without gangrene, not specified as recurrent (principal); N18.6 End stage renal disease; I12.0 Hypertensive chronic kidney disease with stage 5 chronic kidney disease or end stage renal disease; Z20.822 Contact with and (suspected) exposure to COVID-19; R18.8 Other ascites; I16.1 Hypertensive emergency; K56.609 Unspecified intestinal obstruction, unspecified as to partial versus complete obstruction; E87.5 Hyperkalemia; D63.1 Anemia in chronic kidney disease; N43.3 Hydrocele, unspecified; F12.10 Cannabis abuse, uncomplicated; F32.9 Major depressive disorder, single episode, unspecified; Z79.899 Other long term (current) drug therapy; Z99.2 Dependence on renal dialysis; Z87.891 Personal history of nicotine dependence; Z90.49 Acquired absence of other specified parts of digestive tract; Z82.49 Family history of ischemic heart disease and other diseases of the circulatory system
CPT/HCPCS: 36415; 43752; 74018; 74177; 80048; 80053; 83605; 83735; 85025; 87040; 87070; 87077; 87186; 87205; 88307; 90935; 96365; 96375; C1781; G0257; J0360; J0690; J0694; J1100; J2060; J2250; J2270; J2405; J2543; J2704; J3010; J7050; Q9967; S0020; S0028; U0002; U0005

== ENCOUNTER 2021-06-18 15:00 | Inpatient (IN) | payer MEDICARE, MEDICAID ==
[2021-06-18 16:20] LABS: #Basophils 0.1 thou/uL (0.0-0.2); #Eosinphils 0.1 thou/uL (0.0-0.7); #Lymphocytes 1.2 thou/uL (1.20-3.40); #Monocytes 0.7 thou/uL (0.11-0.59); #Neutrophils 4.2 thou/uL (1.40-6.50); %Basophils 1.3 % (0.0-1.0); %Eosinophils 2.1 % (0.0-10.0); %Lymphocytes 18.5 % (21.0-51.0); %Monocytes 10.7 % (0.0-10.0); %Neutrophils 67.4 % (42.0-75.0); Hemoglobin 8.4 g/dL (14.0-18.0); Mean Corpuscular HGB CONC 33.9 g/dL (32.0-36.0); Mean Corpuscular Volume 94.4 fL (78.0-98.0); Mean Platelet Volume 7.5 fL (7.4-10.4); Platelet Count 178 thou/uL (130-400); RBC Distribution Width 14.9 % (11.5-14.5); Red Blood Cell (RBC) Count 2.63 mill/uL (4.70-6.10); White Blood Cell (WBC) Count 6.2 thou/uL (4.8-10.8)
[2021-06-18 16:44] LABS: ALT (SGPT) 20 U/L (8-55); AST (SGOT) 15 U/L (5-34); Albumin 4.3 g/dL (3.5-5.0); Alkaline Phosphatase 78 U/L (40-110); Anion Gap 19 mmol/L (10-20); BUN (Urea Nitrogen) 78 mg/dL (8.9-20.6); Calc. Creatinine Clearance 0 mL/min (70-130); Calcium 10.5 mg/dL (7.8-10.44); Carbon Dioxide 28 mmol/L (22-29); Chloride 98 mmol/L (98-107); Globulin 3.1 g/dL (2.4-3.5); Glucose 99 mg/dL (70-105); Potassium 4.5 mmol/L (3.5-5.1); Protein, Total 7.4 g/dL (6.0-8.3); Sodium 140 mmol/L (136-145)
[2021-06-18 17:05] LABS: CKMB 0.9 ng/mL (0-6.6)
[2021-06-18 17:57] LABS: SARS-CoV-2 NAA Rapid Test Not Detected (NotDetected)
[2021-06-18] MEDS ORDERED: Labetalol HCl 100 MG/20 ML VIAL ONE (20:12)
[2021-06-18] MEDS: Labetalol HCl 100 MG/20 ML VIAL SLOW IVP PRN (20:25)
[2021-06-18] MEDS ORDERED: Acetaminophen 325 MG TAB PO PRN (20:53)
[2021-06-18] MEDS ORDERED: Acetaminophen 650 MG Suppository PR PRN (20:53)
[2021-06-18] MEDS ORDERED: Ondansetron PF 4 MG/2 ML Vial IVP PRN (20:53)
[2021-06-18] MEDS ORDERED: Ondansetron ODT 4 MG TAB PO PRN (20:53)
[2021-06-18] MEDS ORDERED: NIFEdipine XL 60 MG TAB PO SCH (21:00)
[2021-06-18] MEDS ORDERED: Vancomycin HCl 250 MG in Sodium Chloride 0.9% 100 ML IVPB SCH (22:00)
[2021-06-18] MEDS ORDERED: Vancomycin HCl 750 MG in Sodium Chloride 0.9% 250 ML 250 ML IVPB SCH (22:00)
[2021-06-18] MEDS ORDERED: Vancomycin 1 GM in Premix Bag 1 BAG IVPB SCH (22:00)
[2021-06-18] MEDS ORDERED: Vancomycin HCl 500 MG in Sodium Chloride 0.9% 100 ML IVPB SCH (22:00)
[2021-06-18] MEDS ORDERED: HOLD VANCOMYCIN FOR LEVEL >20 FS SCH (22:00)
[2021-06-18] MEDS ORDERED: Piperacillin/Tazobactam 3.375 GM in Sodium Chloride 0.9% 100 ML IVPB SCH (22:00)
[2021-06-18] MEDS ORDERED: hydrALAZINE 25 MG TAB ONE ×2 (22:14→22:22)
[2021-06-18] MEDS ORDERED: Enoxaparin Sodium 100 MG/ML SYRINGE ONE (22:14)
[2021-06-18] MEDS ORDERED: CEFAZOLIN 1 GM VIAL ONE (22:15)
[2021-06-18] MEDS ORDERED: Propofol 1,000 MG/100 ML VIAL IV ONE (22:15)
[2021-06-18] MEDS ORDERED: Piperacillin/Tazobactam 3.375 GM VIAL ONE (22:22)
[2021-06-18] MEDS: hydrALAZINE 25 MG TAB PO SCH (22:28)
[2021-06-18] MEDS: Carvedilol 25 MG TAB PO SCH (22:59)
[2021-06-18] MEDS: Heparin 5,000 UNITS/ML VIAL SC SCH (22:59)
[2021-06-18] MEDS: NIFEdipine XL 60 MG TAB PO SCH (22:59)
[2021-06-18] MEDS ORDERED: VANCOMYCIN 1.25 GM/250 ML BAG 1.25 GM in Premix Bag 1 BAG IVPB SCH (23:00)
[2021-06-18] MEDS ORDERED: Piperacillin/Tazobactam 2.25 GM in Sodium Chloride 0.9% 100 ML IVPB SCH (23:59)
[2021-06-19] MEDS ORDERED: Vancomycin 1.5 GRAM/300 ML BAG 1.5 GM in Premix Bag 1 BAG IVPB SCH (01:00)
[2021-06-19 01:11] VITALS: BMI 20.6
[2021-06-19] MEDS: Piperacillin/Tazobactam 3.375 GM in Sodium Chloride 0.9% 100 ML IVPB SCH ×2 (03:00→15:37)
[2021-06-19] MEDS: Labetalol HCl 100 MG/20 ML VIAL SLOW IVP PRN ×3 (03:16→17:42)
[2021-06-19 04:39] LABS: #Basophils 0.1 thou/uL (0.0-0.2); #Eosinphils 0.3 thou/uL (0.0-0.7); #Lymphocytes 1.4 thou/uL (1.20-3.40); #Monocytes 0.7 thou/uL (0.11-0.59); #Neutrophils 4.6 thou/uL (1.40-6.50); %Eosinophils 3.7 % (0.0-10.0); %Lymphocytes 19.5 % (21.0-51.0); %Monocytes 9.4 % (0.0-10.0); %Neutrophils 66.5 % (42.0-75.0); Hemoglobin 8.4 g/dL (14.0-18.0); Mean Corpuscular HGB CONC 33.8 g/dL (32.0-36.0); Mean Corpuscular Hemoglobin 32.1 pg (27.0-31.0); Mean Corpuscular Volume 94.9 fL (78.0-98.0); Mean Platelet Volume 7.6 fL (7.4-10.4); Platelet Count 180 thou/uL (130-400); RBC Distribution Width 15.1 % (11.5-14.5); Red Blood Cell (RBC) Count 2.63 mill/uL (4.70-6.10); White Blood Cell (WBC) Count 6.9 thou/uL (4.8-10.8)
[2021-06-19 04:56] LABS: Anion Gap 24 mmol/L (10-20); BUN (Urea Nitrogen) 83 mg/dL (8.9-20.6); Calc. Creatinine Clearance 7 mL/min (70-130); Calcium 9.9 mg/dL (7.8-10.44); Carbon Dioxide 23 mmol/L (22-29); Chloride 97 mmol/L (98-107); Glucose 99 mg/dL (70-105); Potassium 4.7 mmol/L (3.5-5.1); Sodium 139 mmol/L (136-145)
[2021-06-19] MEDS ORDERED: Minoxidil 2.5 MG TAB PO SCH ×2 (09:15→16:30)
[2021-06-19] MEDS: Heparin 5,000 UNITS/ML VIAL SC SCH ×3 (10:41→21:23)
[2021-06-19] MEDS: hydrALAZINE 25 MG TAB PO SCH ×3 (10:42→19:39)
[2021-06-19 11:54] LABS: Vancomycin, Trough 33.9 ug/mL
[2021-06-19] MEDS: NIFEdipine XL 60 MG TAB PO SCH ×2 (15:34→19:39)
[2021-06-19] MEDS: Carvedilol 25 MG TAB PO SCH ×2 (17:12→19:38)
[2021-06-19] MEDS ORDERED: hydrALAZINE 20 MG/ML VIAL SLOW IVP PRN (19:36)
[2021-06-19] MEDS: cloNIDine 0.1 MG TAB PO SCH (19:38)
[2021-06-20] MEDS: Piperacillin/Tazobactam 3.375 GM in Sodium Chloride 0.9% 100 ML IVPB SCH ×2 (02:53→14:25)
[2021-06-20 08:49] LABS: #Eosinphils 0.3 thou/uL (0.0-0.7); #Lymphocytes 1.9 thou/uL (1.20-3.40); #Monocytes 0.5 thou/uL (0.11-0.59); #Neutrophils 1.7 thou/uL (1.40-6.50); %Basophils 0.9 % (0.0-1.0); %Eosinophils 6.2 % (0.0-10.0); %Lymphocytes 43.5 % (21.0-51.0); %Monocytes 10.8 % (0.0-10.0); %Neutrophils 38.7 % (42.0-75.0); Hemoglobin 7.8 g/dL (14.0-18.0); Mean Corpuscular HGB CONC 33.3 g/dL (32.0-36.0); Mean Corpuscular Hemoglobin 31.6 pg (27.0-31.0); Mean Corpuscular Volume 94.9 fL (78.0-98.0); Mean Platelet Volume 7.1 fL (7.4-10.4); Platelet Count 157 thou/uL (130-400); RBC Distribution Width 14.6 % (11.5-14.5); Red Blood Cell (RBC) Count 2.45 mill/uL (4.70-6.10); White Blood Cell (WBC) Count 4.3 thou/uL (4.8-10.8)
[2021-06-20] MEDS: NIFEdipine XL 60 MG TAB PO SCH ×2 (08:52→20:05)
[2021-06-20] MEDS: hydrALAZINE 25 MG TAB PO SCH ×3 (08:53→20:06)
[2021-06-20] MEDS: Carvedilol 25 MG TAB PO SCH ×2 (08:53→20:06)
[2021-06-20] MEDS: cloNIDine 0.1 MG TAB PO SCH ×3 (08:53→20:06)
[2021-06-20] MEDS: Heparin 5,000 UNITS/ML VIAL SC SCH ×3 (08:54→20:05)
[2021-06-20 09:06] LABS: Vancomycin, Random 16.5 ug/mL (See Comment)
[2021-06-20 09:08] LABS: Anion Gap 17 mmol/L (10-20); BUN (Urea Nitrogen) 38 mg/dL (8.9-20.6); Calc. Creatinine Clearance 11 mL/min (70-130); Calcium 9.4 mg/dL (7.8-10.44); Carbon Dioxide 27 mmol/L (22-29); Chloride 99 mmol/L (98-107); Glucose 81 mg/dL (70-105); Potassium 3.9 mmol/L (3.5-5.1); Sodium 139 mmol/L (136-145)
[2021-06-20] MEDS ORDERED: Vancomycin HCl 250 MG in Sodium Chloride 0.9% 100 ML IVPB SCH (14:00)
[2021-06-21] MEDS: Piperacillin/Tazobactam 3.375 GM in Sodium Chloride 0.9% 100 ML IVPB SCH (01:10)
[2021-06-21] MEDS: cloNIDine 0.1 MG TAB PO SCH ×2 (13:28→15:43)
[2021-06-21] MEDS: hydrALAZINE 25 MG TAB PO SCH ×2 (13:28→15:43)
[2021-06-21] MEDS: Heparin 5,000 UNITS/ML VIAL SC SCH ×2 (13:28→15:44)
[2021-06-21] MEDS: Carvedilol 25 MG TAB PO SCH (13:33)
[2021-06-21] MEDS: NIFEdipine XL 60 MG TAB PO SCH (13:33)
[2021-06-21 15:41] VITALS: BP 136/72; TEMP 98.2
== END 2021-06-21 16:48 | disposition home or self-care (01) | DRG 871 ==
LOC: ERS 15:00 → ERHOLD 18:34 → 2NO 06-19 00:33 → OBSVTOIN 06-20 22:28
PROVIDERS: ADMIT Family Medicine; ATTEND Internal Medicine
DX: A41.9 Sepsis, unspecified organism (principal); N18.6 End stage renal disease; I12.0 Hypertensive chronic kidney disease with stage 5 chronic kidney disease or end stage renal disease; Z20.822 Contact with and (suspected) exposure to COVID-19; R01.1 Cardiac murmur, unspecified; D63.1 Anemia in chronic kidney disease; R79.89 Other specified abnormal findings of blood chemistry; I16.0 Hypertensive urgency; F32.9 Major depressive disorder, single episode, unspecified; Z99.2 Dependence on renal dialysis; Z79.899 Other long term (current) drug therapy; Z90.49 Acquired absence of other specified parts of digestive tract
CPT/HCPCS: 0240U; 36415; 71045; 80048; 80053; 80202; 82553; 83605; 84484; 85025; 86140; 87040; 93005; 93306; 96374; 96375; 96376; G0378; J0690; J1644; J1650; J2543; J2704; J3370; J3490

== ENCOUNTER 2021-08-24 19:46 | Emergency (ER) | payer MEDICAID, MEDICARE, OTHER ==
[2021-08-24] MEDS ORDERED: Labetalol HCl 100 MG/20 ML VIAL ONE (20:19)
[2021-08-24 20:26] LABS: #Basophils 0.1 thou/uL (0.0-0.2); #Eosinphils 0.4 thou/uL (0.0-0.7); #Monocytes 0.4 thou/uL (0.11-0.59); #Neutrophils 2.7 thou/uL (1.40-6.50); %Basophils 1.7 % (0.0-1.0); %Eosinophils 7.1 % (0.0-10.0); %Monocytes 6.5 % (0.0-10.0); %Neutrophils 48.7 % (42.0-75.0); Hemoglobin 10.7 g/dL (14.0-18.0); Mean Corpuscular HGB CONC 33.8 g/dL (32.0-36.0); Mean Corpuscular Hemoglobin 33.3 pg (27.0-31.0); Mean Corpuscular Volume 98.6 fL (78.0-98.0); Mean Platelet Volume 8.2 fL (7.4-10.4); Platelet Count 138 thou/uL (130-400); RBC Distribution Width 15.9 % (11.5-14.5); Red Blood Cell (RBC) Count 3.22 mill/uL (4.70-6.10); White Blood Cell (WBC) Count 5.5 thou/uL (4.8-10.8)
[2021-08-24 20:46] LABS: ALT (SGPT) 22 U/L (8-55); AST (SGOT) 27 U/L (5-34); Albumin 4.3 g/dL (3.5-5.0); Alkaline Phosphatase 64 U/L (40-110); Anion Gap 16 mmol/L (10-20); BUN (Urea Nitrogen) 65 mg/dL (8.9-20.6); Bilirubin, Total 0.6 mg/dL (0.2-1.2); Calc. Creatinine Clearance 0 mL/min (70-130); Calcium 9.9 mg/dL (7.8-10.44); Carbon Dioxide 29 mmol/L (22-29); Chloride 101 mmol/L (98-107); Globulin 2.5 g/dL (2.4-3.5); Glucose 82 mg/dL (70-105); Potassium 4.4 mmol/L (3.5-5.1); Protein, Total 6.8 g/dL (6.0-8.3); Sodium 142 mmol/L (136-145)
[2021-08-24] MEDS ORDERED: hydrALAZINE 20 MG/ML VIAL ONE ×2 (21:25→22:39)
[2021-08-24] MEDS ORDERED: NIFEdipine 10 MG CAP PO SCH (22:45)
[2021-08-24] MEDS ORDERED: Carvedilol 25 MG TAB PO SCH (22:45)
== END 2021-08-25 00:06 ==
LOC: ERS 19:46
DX: I10 Essential (primary) hypertension (principal); R07.9 Chest pain, unspecified; Z99.2 Dependence on renal dialysis; Z79.899 Other long term (current) drug therapy
CPT/HCPCS: 71045; 80053; 84484; 85025; 93005; 96374; 96375; 96376; J0360

== ENCOUNTER 2021-10-15 02:54 | Inpatient (IN) | payer MEDICARE, MEDICAID ==
[2021-10-15] MEDS ORDERED: Acetaminophen 500 MG TAB ONE (03:50)
[2021-10-15] MEDS ORDERED: Ondansetron PF 4 MG/2 ML Vial ONE (03:50)
[2021-10-15] MEDS ORDERED: hydrALAZINE 20 MG/ML VIAL ONE (03:50)
[2021-10-15 04:41] LABS: #Basophils 0.1 thou/uL (0.0-0.2); #Eosinphils 0.3 thou/uL (0.0-0.7); #Lymphocytes 1.2 thou/uL (1.20-3.40); #Monocytes 0.5 thou/uL (0.11-0.59); #Neutrophils 7.2 thou/uL (1.40-6.50); %Basophils 0.9 % (0.0-1.0); %Eosinophils 3.7 % (0.0-10.0); %Lymphocytes 13.1 % (21.0-51.0); %Monocytes 5.5 % (0.0-10.0); %Neutrophils 76.9 % (42.0-75.0); Hemoglobin 9.3 g/dL (14.0-18.0); Mean Corpuscular HGB CONC 34.2 g/dL (32.0-36.0); Mean Corpuscular Hemoglobin 32.8 pg (27.0-31.0); Mean Corpuscular Volume 95.8 fL (78.0-98.0); Mean Platelet Volume 7.8 fL (7.4-10.4); Platelet Count 145 thou/uL (130-400); RBC Distribution Width 14.7 % (11.5-14.5); Red Blood Cell (RBC) Count 2.83 mill/uL (4.70-6.10); White Blood Cell (WBC) Count 9.4 thou/uL (4.8-10.8)
[2021-10-15 04:47] LABS: ALT (SGPT) 23 U/L (8-55); AST (SGOT) 16 U/L (5-34); Albumin 4.3 g/dL (3.5-5.0); Alkaline Phosphatase 70 U/L (40-110); Anion Gap 22 mmol/L (10-20); BUN (Urea Nitrogen) 82 mg/dL (8.9-20.6); Bilirubin, Total 0.8 mg/dL (0.2-1.2); Calc. Creatinine Clearance 0 mL/min (70-130); Calcium 10.6 mg/dL (7.8-10.44); Carbon Dioxide 26 mmol/L (22-29); Chloride 98 mmol/L (98-107); Glucose 92 mg/dL (70-105); Lipase 49 U/L (8-78); Potassium 5.4 mmol/L (3.5-5.1); Protein, Total 7.3 g/dL (6.0-8.3); Sodium 141 mmol/L (136-145)
[2021-10-15] MEDS ORDERED: cefTRIAXone\\ROCEPHIN 500 MG VIAL ONE (07:33)
[2021-10-15] MEDS ORDERED: Guaifenesin DM 100-10/5 ML UDCUP PO PRN (08:00)
[2021-10-15] MEDS ORDERED: Benzonatate 100 MG CAP PO PRN (08:00)
[2021-10-15] MEDS ORDERED: Calcium Carbonate 500 MG ChewTAB PO PRN (08:01)
[2021-10-15] MEDS ORDERED: Ondansetron ODT 4 MG TAB PO PRN (08:01)
[2021-10-15] MEDS ORDERED: Acetaminophen 325 MG TAB PO PRN (08:01)
[2021-10-15] MEDS ORDERED: Senokot S 8.6-50 MG TAB PO PRN (08:01)
[2021-10-15 08:27] LABS: SARS-CoV-2 NAA Rapid Test Not Detected (NotDetected)
[2021-10-15] MEDS ORDERED: Acetaminophen 325 MG TAB ONE (10:11)
[2021-10-15] MEDS: Famotidine 20 MG TAB PO SCH ×2 (15:20→20:49)
[2021-10-15] MEDS: guaiFENesin ER 600 MG TAB PO SCH ×2 (15:20→20:49)
[2021-10-15] MEDS: Heparin 5,000 UNITS/ML VIAL SC SCH ×3 (15:20→20:49)
[2021-10-15 15:32] VITALS: BMI 20.5
[2021-10-15] MEDS: hydrALAZINE 20 MG/ML VIAL SLOW IVP PRN (15:50)
[2021-10-15] MEDS ORDERED: EPOETIN ALFA-EPBX (ESRD) 10,000 UNIT/ML VIAL IVP SCH (17:00)
[2021-10-15] MEDS ORDERED: Carvedilol 25 MG TAB PO SCH (18:30)
[2021-10-15] MEDS ORDERED: NIFEdipine XL 60 MG TAB PO SCH (18:30)
[2021-10-15] MEDS: hydrALAZINE 25 MG TAB PO SCH (20:49)
[2021-10-16] MEDS: NIFEdipine XL 60 MG TAB PO SCH ×2 (05:59→20:24)
[2021-10-16 07:10] LABS: #Basophils 0.1 thou/uL (0.0-0.2); #Eosinphils 0.2 thou/uL (0.0-0.7); #Lymphocytes 2.3 thou/uL (1.20-3.40); #Monocytes 0.6 thou/uL (0.11-0.59); #Neutrophils 4.2 thou/uL (1.40-6.50); %Basophils 0.9 % (0.0-1.0); %Lymphocytes 31.3 % (21.0-51.0); %Monocytes 8.5 % (0.0-10.0); %Neutrophils 56.2 % (42.0-75.0); Hemoglobin 8.3 g/dL (14.0-18.0); Mean Corpuscular HGB CONC 33.8 g/dL (32.0-36.0); Mean Corpuscular Hemoglobin 32.5 pg (27.0-31.0); Mean Corpuscular Volume 96.2 fL (78.0-98.0); Mean Platelet Volume 7.6 fL (7.4-10.4); Platelet Count 142 thou/uL (130-400); RBC Distribution Width 14.8 % (11.5-14.5); Red Blood Cell (RBC) Count 2.57 mill/uL (4.70-6.10); White Blood Cell (WBC) Count 7.5 thou/uL (4.8-10.8)
[2021-10-16 07:29] LABS: Anion Gap 15 mmol/L (10-20); BUN (Urea Nitrogen) 48 mg/dL (8.9-20.6); Calc. Creatinine Clearance 11 mL/min (70-130); Calcium 9.6 mg/dL (7.8-10.44); Carbon Dioxide 32 mmol/L (22-29); Chloride 99 mmol/L (98-107); Glucose 88 mg/dL (70-105); Potassium 4.7 mmol/L (3.5-5.1); Sodium 141 mmol/L (136-145)
[2021-10-16] MEDS: hydrALAZINE 25 MG TAB PO SCH ×3 (08:12→20:24)
[2021-10-16] MEDS: Carvedilol 25 MG TAB PO SCH ×2 (08:14→20:23)
[2021-10-16] MEDS: cefTRIAXone\\ROCEPHIN 1 GM in Sodium Chloride 0.9% 100 ML IVPB SCH (08:14)
[2021-10-16] MEDS: guaiFENesin ER 600 MG TAB PO SCH ×2 (08:14→20:23)
[2021-10-16] MEDS: Famotidine 20 MG TAB PO SCH (08:14)
[2021-10-16] MEDS: Heparin 5,000 UNITS/ML VIAL SC SCH ×3 (08:18→22:53)
[2021-10-16] MEDS: Azithromycin 500 MG in Sodium Chloride 0.9% 250 ML 250 ML IVPB SCH (09:24)
[2021-10-16] MEDS: hydrALAZINE 20 MG/ML VIAL SLOW IVP PRN (23:34)
[2021-10-17 06:53] LABS: #Basophils 0.1 thou/uL (0.0-0.2); #Eosinphils 0.4 thou/uL (0.0-0.7); #Monocytes 0.7 thou/uL (0.11-0.59); #Neutrophils 4.5 thou/uL (1.40-6.50); %Basophils 0.8 % (0.0-1.0); %Eosinophils 5.5 % (0.0-10.0); %Neutrophils 58.7 % (42.0-75.0); Hemoglobin 8.6 g/dL (14.0-18.0); Mean Corpuscular Hemoglobin 32.6 pg (27.0-31.0); Mean Corpuscular Volume 95.9 fL (78.0-98.0); Platelet Count 155 thou/uL (130-400); RBC Distribution Width 14.8 % (11.5-14.5); Red Blood Cell (RBC) Count 2.63 mill/uL (4.70-6.10); White Blood Cell (WBC) Count 7.7 thou/uL (4.8-10.8)
[2021-10-17 07:11] LABS: Anion Gap 19 mmol/L (10-20); BUN (Urea Nitrogen) 69 mg/dL (8.9-20.6); Calc. Creatinine Clearance 8 mL/min (70-130); Calcium 9.9 mg/dL (7.8-10.44); Carbon Dioxide 26 mmol/L (22-29); Chloride 99 mmol/L (98-107); Glucose 106 mg/dL (70-105); Potassium 4.3 mmol/L (3.5-5.1); Sodium 140 mmol/L (136-145)
[2021-10-17] MEDS ORDERED: Famotidine 20 MG TAB PO SCH (09:00)
[2021-10-17] MEDS: EPOETIN ALFA-EPBX (ESRD) 10,000 UNIT/ML VIAL IVP SCH (12:46)
[2021-10-17] MEDS: Heparin 5,000 UNITS/ML VIAL SC SCH ×3 (12:46→21:40)
[2021-10-17] MEDS: hydrALAZINE 25 MG TAB PO SCH ×3 (12:46→21:39)
[2021-10-17] MEDS: guaiFENesin ER 600 MG TAB PO SCH ×2 (13:43→21:40)
[2021-10-17] MEDS: cefTRIAXone\\ROCEPHIN 1 GM in Sodium Chloride 0.9% 100 ML IVPB SCH (14:43)
[2021-10-17] MEDS: Carvedilol 25 MG TAB PO SCH ×2 (14:58→21:40)
[2021-10-17] MEDS: NIFEdipine XL 60 MG TAB PO SCH ×2 (14:59→21:40)
[2021-10-17] MEDS: Azithromycin 500 MG in Sodium Chloride 0.9% 250 ML 250 ML IVPB SCH ×2 (15:57→17:07)
[2021-10-17] MEDS ORDERED: Labetalol HCl 100 MG/20 ML VIAL SLOW IVP PRN (16:11)
[2021-10-17] MEDS ORDERED: cloNIDine 0.1 MG TAB PO SCH (19:00)
[2021-10-18 07:16] LABS: #Basophils 0.1 thou/uL (0.0-0.2); #Eosinphils 0.4 thou/uL (0.0-0.7); #Lymphocytes 2.3 thou/uL (1.20-3.40); #Monocytes 0.7 thou/uL (0.11-0.59); #Neutrophils 3.2 thou/uL (1.40-6.50); %Basophils 1.2 % (0.0-1.0); %Eosinophils 5.4 % (0.0-10.0); %Monocytes 9.9 % (0.0-10.0); %Neutrophils 48.6 % (42.0-75.0); Hemoglobin 8.5 g/dL (14.0-18.0); Mean Corpuscular HGB CONC 33.8 g/dL (32.0-36.0); Mean Corpuscular Hemoglobin 32.4 pg (27.0-31.0); Mean Corpuscular Volume 96.1 fL (78.0-98.0); Mean Platelet Volume 7.4 fL (7.4-10.4); Platelet Count 171 thou/uL (130-400); Red Blood Cell (RBC) Count 2.61 mill/uL (4.70-6.10); White Blood Cell (WBC) Count 6.6 thou/uL (4.8-10.8)
[2021-10-18 07:36] LABS: ALT (SGPT) 14 U/L (8-55); AST (SGOT) 12 U/L (5-34); Albumin 3.7 g/dL (3.5-5.0); Alkaline Phosphatase 64 U/L (40-110); Anion Gap 16 mmol/L (10-20); BUN (Urea Nitrogen) 39 mg/dL (8.9-20.6); Bilirubin, Direct 0.2 mg/dL (0.1-0.3); Bilirubin, Total 0.5 mg/dL (0.2-1.2); Calc. Creatinine Clearance 12 mL/min (70-130); Calcium 9.9 mg/dL (7.8-10.44); Carbon Dioxide 30 mmol/L (22-29); Chloride 98 mmol/L (98-107); Glucose 90 mg/dL (70-105); Potassium 4.1 mmol/L (3.5-5.1); Protein, Total 6.5 g/dL (6.0-8.3); Sodium 140 mmol/L (136-145)
[2021-10-18] MEDS: NIFEdipine XL 60 MG TAB PO SCH ×2 (08:33→20:14)
[2021-10-18] MEDS: hydrALAZINE 25 MG TAB PO SCH ×3 (08:33→20:15)
[2021-10-18] MEDS: guaiFENesin ER 600 MG TAB PO SCH ×2 (08:34→20:16)
[2021-10-18] MEDS: Heparin 5,000 UNITS/ML VIAL SC SCH ×3 (08:34→20:16)
[2021-10-18] MEDS: Carvedilol 25 MG TAB PO SCH ×2 (08:34→20:16)
[2021-10-18] MEDS ORDERED: cefTRIAXone\\ROCEPHIN 1 GM in Sodium Chloride 0.9% 100 ML IVPB SCH (14:00)
[2021-10-18] MEDS: Azithromycin 500 MG in Sodium Chloride 0.9% 250 ML 250 ML IVPB SCH (18:09)
[2021-10-18] MEDS: cloNIDine 0.1 MG TAB PO PRN (18:22)
[2021-10-19] MEDS: cloNIDine 0.1 MG TAB PO PRN ×2 (03:37→15:54)
[2021-10-19 07:35] LABS: #Basophils 0.1 thou/uL (0.0-0.2); #Eosinphils 0.4 thou/uL (0.0-0.7); #Monocytes 0.5 thou/uL (0.11-0.59); #Neutrophils 1.9 thou/uL (1.40-6.50); %Eosinophils 7.6 % (0.0-10.0); %Lymphocytes 41.4 % (21.0-51.0); Hemoglobin 8.2 g/dL (14.0-18.0); Mean Corpuscular HGB CONC 34.9 g/dL (32.0-36.0); Mean Corpuscular Hemoglobin 33.5 pg (27.0-31.0); Mean Platelet Volume 7.1 fL (7.4-10.4); Platelet Count 171 thou/uL (130-400); RBC Distribution Width 14.9 % (11.5-14.5); Red Blood Cell (RBC) Count 2.45 mill/uL (4.70-6.10); White Blood Cell (WBC) Count 4.8 thou/uL (4.8-10.8)
[2021-10-19 07:56] LABS: Anion Gap 19 mmol/L (10-20); BUN (Urea Nitrogen) 61 mg/dL (8.9-20.6); Calc. Creatinine Clearance 9 mL/min (70-130); Calcium 9.6 mg/dL (7.8-10.44); Carbon Dioxide 25 mmol/L (22-29); Chloride 99 mmol/L (98-107); Glucose 88 mg/dL (70-105); Potassium 4.5 mmol/L (3.5-5.1); Sodium 138 mmol/L (136-145)
[2021-10-19] MEDS: NIFEdipine XL 60 MG TAB PO SCH (13:38)
[2021-10-19] MEDS: EPOETIN ALFA-EPBX (ESRD) 10,000 UNIT/ML VIAL IVP SCH (13:38)
[2021-10-19] MEDS: hydrALAZINE 25 MG TAB PO SCH ×2 (13:39→16:20)
[2021-10-19] MEDS: Carvedilol 25 MG TAB PO SCH (14:19)
[2021-10-19] MEDS: Heparin 5,000 UNITS/ML VIAL SC SCH (14:19)
[2021-10-19] MEDS: guaiFENesin ER 600 MG TAB PO SCH (14:19)
[2021-10-19 18:31] VITALS: BP 157/96; TEMP 98.4
== END 2021-10-19 18:23 | DRG 193 ==
LOC: ERS 02:54 → ERHOLD 07:57 → EEVIPCON 07:57 → T4-B 12:17
PROVIDERS: ADMIT Internal Medicine Nephrology; ATTEND Internal Medicine
PROC: 5A1D70Z Performance of Urinary Filtration, Intermittent, Less than 6 Hours Per Day (ICD-10-PCS; principal; 2021-10-15)
DX: J18.9 Pneumonia, unspecified organism (principal); J96.01 Acute respiratory failure with hypoxia; N18.6 End stage renal disease; I12.0 Hypertensive chronic kidney disease with stage 5 chronic kidney disease or end stage renal disease; E87.2 Acidosis; Z20.822 Contact with and (suspected) exposure to COVID-19; E87.5 Hyperkalemia; D63.1 Anemia in chronic kidney disease; F32.A Depression, unspecified; I16.0 Hypertensive urgency; Z99.2 Dependence on renal dialysis; Z90.49 Acquired absence of other specified parts of digestive tract; Z79.899 Other long term (current) drug therapy; Z98.890 Other specified postprocedural states
CPT/HCPCS: 36415; 36416; 71045; 76705; 80048; 80053; 80076; 83690; 85025; 87804; 90935; G0257; J0360; J0456; J0696; J1644; J2405; J3490; J7050; Q5105; U0002

== ENCOUNTER 2021-11-07 16:43 | Emergency (ER) | payer MEDICARE, MEDICAID ==
[2021-11-07 18:41] LABS: Hemoglobin 10.8 g/dL (14.0-18.0); Mean Corpuscular HGB CONC 33.1 g/dL (32.0-36.0); Mean Corpuscular Hemoglobin 32.1 pg (27.0-31.0); Mean Corpuscular Volume 96.8 fL (78.0-98.0); Mean Platelet Volume 8.1 fL (7.4-10.4); Platelet Count 88 thou/uL (130-400); RBC Distribution Width 14.7 % (11.5-14.5); Red Blood Cell (RBC) Count 3.36 mill/uL (4.70-6.10); White Blood Cell (WBC) Count 3.1 thou/uL (4.8-10.8)
[2021-11-07 18:55] LABS: Band 4 % (5-11); Eosinophils 3 % (0-10); Lymphocytes 15 % (21-51); MDiff Complete? YES; Monocytes 23 % (0-10); Neutrophil 50 % (42-75); Ovalocytes SLIGHT = 2-5 cells (100X) (0-1/hpf); Platelet Morphology Comment Appears Decreased; Polychromasia SLIGHT = 2-3 cells (100X) (0-2/hpf); Reactive Lymphocytes 2 % (0-10)
[2021-11-07 18:56] LABS: ALT (SGPT) 17 U/L (8-55); AST (SGOT) 25 U/L (5-34); Albumin 4.6 g/dL (3.5-5.0); Alkaline Phosphatase 80 U/L (40-110); Anion Gap 16 mmol/L (10-20); BUN (Urea Nitrogen) 31 mg/dL (8.9-20.6); Bilirubin, Total 0.8 mg/dL (0.2-1.2); Calc. Creatinine Clearance 0 mL/min (70-130); Calcium 9.5 mg/dL (7.8-10.44); Carbon Dioxide 36 mmol/L (22-29); Chloride 95 mmol/L (98-107); Globulin 3.4 g/dL (2.4-3.5); Glucose 98 mg/dL (70-105); Potassium 3.7 mmol/L (3.5-5.1); Sodium 143 mmol/L (136-145)
[2021-11-08 13:05] LABS: SARS-CoV-2 PCR by NAA DETECTED (NotDetected)
== END 2021-11-07 19:41 | disposition home or self-care (01) ==
LOC: ERS 16:43
DX: U07.1 COVID-19 (principal); N18.9 Chronic kidney disease, unspecified; Z99.2 Dependence on renal dialysis
CPT/HCPCS: 71045; 80053; 85025; 87040; 87804 ×2; 99283; U0003; U0005; 36415

== ENCOUNTER 2021-11-22 10:43 | Emergency (ER) | payer MEDICARE, OTHER ==
[2021-11-22] MEDS ORDERED: hydrALAZINE 20 MG/ML VIAL SLOW IVP PRN (12:48)
[2021-11-22] MEDS ORDERED: Dextrose 50% Abboject 50 ML SYRINGE SLOW IVP PRN (12:48)
[2021-11-22] MEDS ORDERED: Dextrose 5% in Water 1,000 ML IV PRN (12:48)
[2021-11-22] MEDS ORDERED: Morphine 4 MG/ML VIAL SLOW IVP PRN (12:48)
[2021-11-22] MEDS ORDERED: Ondansetron PF 4 MG/2 ML Vial IVP PRN (12:48)
[2021-11-22] MEDS ORDERED: Acetaminophen/Codeine 30-300mg Tablet PO PRN ×2 (12:52)
[2021-11-22] MEDS ORDERED: Morphine 4 MG/ML VIAL ONE (13:01)
[2021-11-22] MEDS ORDERED: Ondansetron PF 4 MG/2 ML Vial ONE (13:01)
[2021-11-22 13:05] LABS: #Basophils 0.1 thou/uL (0.0-0.2); #Eosinphils 0.3 thou/uL (0.0-0.7); #Lymphocytes 1.4 thou/uL (1.20-3.40); #Monocytes 0.5 thou/uL (0.11-0.59); %Eosinophils 3.6 % (0.0-10.0); %Lymphocytes 16.9 % (21.0-51.0); %Monocytes 6.1 % (0.0-10.0); %Neutrophils 72.4 % (42.0-75.0); Hemoglobin 9.4 g/dL (14.0-18.0); Mean Corpuscular HGB CONC 32.9 g/dL (32.0-36.0); Mean Corpuscular Hemoglobin 32.3 pg (27.0-31.0); Mean Corpuscular Volume 98.1 fL (78.0-98.0); Mean Platelet Volume 6.6 fL (7.4-10.4); Platelet Count 191 thou/uL (130-400); RBC Distribution Width 15.3 % (11.5-14.5); Red Blood Cell (RBC) Count 2.89 mill/uL (4.70-6.10); White Blood Cell (WBC) Count 8.3 thou/uL (4.8-10.8)
[2021-11-22 13:15] LABS: INR-International Normal Ratio 1.1; PTT 31.4 sec (22.9-36.1); Prothrombin Time 14.7 sec (12.0-14.7)
[2021-11-22 13:32] LABS: ALT (SGPT) 19 U/L (8-55); AST (SGOT) 22 U/L (5-34); Albumin 4.6 g/dL (3.5-5.0); Alkaline Phosphatase 81 U/L (40-110); Anion Gap 16 mmol/L (10-20); BUN (Urea Nitrogen) 41 mg/dL (8.9-20.6); Bilirubin, Total 0.7 mg/dL (0.2-1.2); Calc. Creatinine Clearance 0 mL/min (70-130); Calcium 10.2 mg/dL (7.8-10.44); Carbon Dioxide 29 mmol/L (22-29); Chloride 100 mmol/L (98-107); Globulin 3.4 g/dL (2.4-3.5); Glucose 103 mg/dL (70-105); Magnesium 2.3 mg/dL (1.6-2.6); Phosphorus 4.1 mg/dL (2.3-4.7); Potassium 3.9 mmol/L (3.5-5.1); Sodium 141 mmol/L (136-145)
[2021-11-22] MEDS ORDERED: Ketamine 50 MG/ML (10ML VIAL) ONE (13:53)
[2021-11-22] MEDS ORDERED: PROPOFOL 0 ML ONE (13:53)
[2021-11-22 14:09] LABS: SARS-CoV-2 NAA Rapid Test Not Detected (NotDetected)
[2021-11-22] MEDS ORDERED: Acetaminophen 325 MG TAB PO SCH (18:00)
[2021-11-22] MEDS ORDERED: Famotidine 20 MG TAB PO SCH (21:00)
[2021-11-22] MEDS ORDERED: Senokot S 8.6-50 MG TAB PO SCH (21:00)
[2021-11-23] MEDS ORDERED: Polyethylene Glycol 3350 17 GM Packet PO SCH (09:00)
== END 2021-11-22 16:00 | disposition home or self-care (01) ==
LOC: ERS 10:43
DX: S82.852A Displaced trimalleolar fracture of left lower leg, initial encounter for closed fracture (principal); I10 Essential (primary) hypertension; I45.10 Unspecified right bundle-branch block; X50.1XXA Overexertion from prolonged static or awkward postures, initial encounter; Y93.39 Activity, other involving climbing, rappelling and jumping off; Z20.822 Contact with and (suspected) exposure to COVID-19; Z99.2 Dependence on renal dialysis; Z79.899 Other long term (current) drug therapy
CPT/HCPCS: 27818; 71045; 73590; 73600; 73610; 73620; 80053; 83735; 84100; 85025; 85610; 85730; 93005; 96374; 96375; 99152; 99284; U0002; J2270; J2405; J2704

== ENCOUNTER 2021-11-29 10:35 | Day surgery (SDC) | payer MEDICARE, OTHER ==
[2021-11-28 13:07] VITALS: BMI 21.2
[2021-11-29] MEDS ORDERED: Midazolam HCl 2 mg/2 ml Vial ONE (11:17)
[2021-11-29] MEDS ORDERED: ceFAZolin Sodium (SDC) 2 GM/100 ML BAG ONE (13:42)
[2021-11-29] MEDS ORDERED: Lidocaine 1% PF 5 ML VIAL ONE (13:50)
[2021-11-29] MEDS ORDERED: PROPOFOL 200 MG/20 ML VIAL ONE (13:50)
[2021-11-29] MEDS ORDERED: Bupivacaine HCl 0.5%/Epinephrine 1:200,000/PF 30 ml Vial ONE (13:50)
[2021-11-29] MEDS ORDERED: Dexamethasone 20 MG/5 ML VIAL ONE (13:50)
[2021-11-29] MEDS ORDERED: Ondansetron PF 4 MG/2 ML Vial ONE (13:50)
[2021-11-29] MEDS ORDERED: Fentanyl 250 MCG/5 ML VIAL ONE ×2 (13:56→15:47)
== END 2021-11-29 18:40 | disposition home or self-care (01) ==
LOC: SDC 10:35
PROVIDERS: ATTEND Orthopaedic Surgery
PROC: 0QSK04Z Reposition Left Fibula with Internal Fixation Device, Open Approach (ICD-10-PCS; principal; 2021-11-29)
PROC: 0QSH04Z Reposition Left Tibia with Internal Fixation Device, Open Approach (ICD-10-PCS; 2021-11-29)
PROC: 3E0T3BZ Introduction of Anesthetic Agent into Peripheral Nerves and Plexi, Percutaneous Approach (ICD-10-PCS; 2021-11-29)
PROC: 3E0T3BZ Introduction of Anesthetic Agent into Peripheral Nerves and Plexi, Percutaneous Approach (ICD-10-PCS; 2021-11-29)
DX: S82.852A Displaced trimalleolar fracture of left lower leg, initial encounter for closed fracture (principal); S93.432A Sprain of tibiofibular ligament of left ankle, initial encounter; Z79.899 Other long term (current) drug therapy; X50.1XXA Overexertion from prolonged static or awkward postures, initial encounter
CPT/HCPCS: 76000; C1713; J0690; J1100; J2250; J2405; J2704; J3010

== ENCOUNTER 2022-03-20 10:28 | Outpatient (CLI) | payer MEDICARE, MEDICAID ==
[2020-11-22 16:00] LABS: Hemoglobin 8.6 g/dL (13.5-17.5)
[2020-11-22 16:02] LABS: Anion Gap 17 mmol/L (10-20); Carbon Dioxide 29 mmol/L (22-29); Chloride 97 mmol/L (98-107); Potassium 4.4 mmol/L (3.5-5.1); Sodium 139 mmol/L (136-145)
== END 2022-03-20 10:29 | disposition home or self-care (01) ==
LOC: LABBT 10:28
PROVIDERS: ATTEND Orthopaedic Surgery
DX: Z01.812 Encounter for preprocedural laboratory examination (principal); T85.848A Pain due to other internal prosthetic devices, implants and grafts, initial encounter; Z20.822 Contact with and (suspected) exposure to COVID-19
CPT/HCPCS: 80051; 85014; 85018; U0003; U0005

== ENCOUNTER 2022-03-25 10:23 | Day surgery (SDC) | payer MEDICARE, MEDICAID ==
[2022-03-21 11:07] VITALS: BMI 19.2
[2022-03-25] MEDS ORDERED: hydrALAZINE 20 MG/ML VIAL ONE ×2 (11:32→11:51)
[2022-03-25 11:43] LABS: Anion Gap 21 mmol/L (10-20); BUN (Urea Nitrogen) 90 mg/dL (8.9-20.6); Calc. Creatinine Clearance 7 mL/min (70-130); Carbon Dioxide 24 mmol/L (22-29); Chloride 101 mmol/L (98-107); Glucose 81 mg/dL (70-105); Potassium 5.1 mmol/L (3.5-5.1); Sodium 141 mmol/L (136-145)
[2022-03-25 12:07] LABS: Band 7 % (5-11); Eosinophils 4 % (0-10); Hemoglobin 10.7 g/dL (14.0-18.0); Lymphocytes 33 % (21-51); MDiff Complete? YES; Macrocytosis SLIGHT = 6-15 cells (100X) (0-5/hpf); Mean Corpuscular HGB CONC 31.7 g/dL (32.0-36.0); Mean Corpuscular Hemoglobin 32.4 pg (27.0-31.0); Mean Platelet Volume 8.2 fL (7.4-10.4); Monocytes 11 % (0-10); Neutrophil 43 % (42-75); Platelet Count 142 thou/uL (130-400); Platelet Morphology Comment Appears Adequate; Polychromasia SLIGHT = 2-3 cells (100X) (0-2/hpf); RBC Distribution Width 16.7 % (11.5-14.5); Reactive Lymphocytes 1 % (0-10); Red Blood Cell (RBC) Count 3.31 mill/uL (4.70-6.10); White Blood Cell (WBC) Count 5.2 thou/uL (4.8-10.8)
[2022-03-25] MEDS ORDERED: fentaNYL Citrate/PF 100 MCG/2 ML SYRINGE ONE ×2 (13:02→13:29)
[2022-03-25] MEDS ORDERED: Sodium Chloride 0.9% 100 ML ONE (13:13)
[2022-03-25] MEDS ORDERED: CEFAZOLIN 2 GM VIAL ONE (13:13)
[2022-03-25] MEDS ORDERED: PROPOFOL 200 MG/20 ML VIAL ONE (13:24)
[2022-03-25] MEDS ORDERED: Lidocaine 1% PF 5 ML VIAL ONE (13:24)
[2022-03-25] MEDS ORDERED: Dexamethasone 20 MG/5 ML VIAL ONE (13:24)
[2022-03-25] MEDS ORDERED: Ondansetron PF 4 MG/2 ML Vial ONE (13:24)
== END 2022-03-25 14:47 | disposition home or self-care (01) ==
LOC: SDC 10:23
PROVIDERS: ATTEND Orthopaedic Surgery
PROC: 0SPG04Z Removal of Internal Fixation Device from Left Ankle Joint, Open Approach (ICD-10-PCS; principal; 2022-03-25)
DX: T84.84XA Pain due to internal orthopedic prosthetic devices, implants and grafts, initial encounter (principal); I12.0 Hypertensive chronic kidney disease with stage 5 chronic kidney disease or end stage renal disease; N18.6 End stage renal disease; Z79.899 Other long term (current) drug therapy
CPT/HCPCS: 76000; 80048; 85025; J0360; J0690; J1100; J2405; J2704; J3490

== ENCOUNTER 2022-07-10 12:30 | Emergency (ER) | payer MEDICARE, MEDICAID | END 2022-07-10 15:09 | disposition home or self-care (01) | LOC: ERS 12:30 | DX: U07.1 COVID-19 (principal); H11.31 Conjunctival hemorrhage, right eye; I12.0 Hypertensive chronic kidney disease with stage 5 chronic kidney disease or end stage renal disease; N18.6 End stage renal disease; Z99.2 Dependence on renal dialysis; I16.9 Hypertensive crisis, unspecified | CPT/HCPCS: 71045; 87081; 87430; 99283; G0463; 99213 ==

== ENCOUNTER 2023-07-13 19:58 | Emergency (ER) | payer MEDICARE, MEDICAID | END 2023-07-13 23:06 | disposition home or self-care (01) | LOC: ERS 19:58 | DX: S09.90XA Unspecified injury of head, initial encounter (principal); M25.571 Pain in right ankle and joints of right foot; I10 Essential (primary) hypertension; W10.8XXA Fall (on) (from) other stairs and steps, initial encounter | CPT/HCPCS: 70450; 72125 ==